=== PATIENT | male | born 1960 | race Caucasian/White ===

== ENCOUNTER 2018-10-28 12:38 | Inpatient (IN) | payer MEDICARE, OTHER ==
[~2018-10-28] VITALS: Ht 172.7 cm; Wt 66.8 kg
--- NOTE | 2018-10-28 14:18 | Diagnostic Imaging Report ---
History:Slurred speech Comparison studies:None Technique: Axial images were obtained from the skull base to the vertex. Coronal and sagittal images reconstructed from the axial data. Intravenous contrast: None Dose modulation, iterative reconstruction, and/or weight based adjustment of the mA/kV was utilized to reduce the radiation dose to as low as reasonably achievable. Findings: Scalp/skull: No abnormalities. Extra-axial spaces: Left mid cranial fossa arachnoid cyst with mild mass effect over the left temporal pole. No midline shift. Brain sulci: Moderately prominent at the frontal convexities. Ventricles: Age-appropriate. No hydrocephalus. Parenchyma: Hypodensity at the left posterior subinsular region, related to prominent perivascular space. No abnormal densities. No masses, hemorrhage, acute or chronic cortical vascular insults. Sellar/suprasellar region: No abnormalities. Craniocervical junction: Patent foramen magnum. No Chiari one malformation. Incidental findings: Atherosclerotic calcifications in the carotid siphons . Impression: No acute abnormalities. Chronic findings: 1. Moderate cortical volume loss at the frontal lobes, more than expected for patient's age. 2. Left mid cranial fossa arachnoid cyst Signed by: DR Rufino Paul M.D. on 10/28/2018 2:15 PM
[2018-10-28 14:27] LABS: BASOPHILS # (AUTO) 0.1 (0.0-0.1); BASOPHILS % 0.7 % (0.0-1.0); EOSINOPHILS # (AUTO) 0.2 (0.0-0.4); EOSINOPHILS % 2.6 % (0.0-6.0); HEMATOCRIT 42.8 % (38.2-49.6); HEMOGLOBIN 14.8 g/dL (14.0-18.0); LYMPHOCYTES # (AUTO) 2.4 (1.0-3.2); MEAN CORPUSCULAR HEMOGLOBIN 30.5 pg (28-32); MEAN CORPUSCULAR HGB CONC 34.6 g/dL (31-35); MEAN CORPUSCULAR VOLUME 88.2 fL (81-99); MONOCYTES # (AUTO) 0.6 (0.2-0.8); MONOCYTES % 7.6 % (4.4-11.3); NEUTROPHILS # (AUTO) 4.1 (2.1-6.9); NEUTROPHILS % 55.8 % (38.7-80.0); PLATELET COUNT 340 x10e3/uL (140-360); RED BLOOD COUNT 4.85 x10e6/uL (4.3-5.7); RED CELL DISTRIBUTION WIDTH 12.6 % (11.7-14.4)
[2018-10-28 14:32] LABS: INR 0.94; PROTHROMBIN TIME 13.1 seconds (11.9-14.5)
[2018-10-28 14:42] LABS: ALANINE AMINOTRANSFERASE 22 IU/L (0-55); ALBUMIN/GLOBULIN RATIO 0.8 (0.8-2.0); ALKALINE PHOSPHATASE 63 IU/L (40-150); ANION GAP 13.2 mmol/L (8-16); BLOOD UREA NITROGEN 8 mg/dL (7-26); BUN/CREATININE RATIO 8 (6-25); CALCIUM 9.2 mg/dL (8.4-10.2); CARBON DIOXIDE 28 mmol/L (22-29); CHLORIDE 106 mmol/L (98-107); CREATINE KINASE 83 IU/L (30-200); CREATININE, SERUM 1.04 mg/dL (0.72-1.25); EST GLOMERULAR FILTRATION RATE > 60 ML/MIN (60-); GLUCOSE 90 mg/dL (74-118); MAGNESIUM 2.4 MG/DL (1.3-2.1); POTASSIUM 4.2 mmol/L (3.5-5.1); SODIUM 143 mmol/L (136-145)
[2018-10-28] MEDS ORDERED: ONDANSETRON HCL INJ 2MG/ML 2ML 2 MG/ML VIAL IV PRN (15:00)
[2018-10-28 15:02] LABS: THYROID STIMULATING HORMONE 0.665 uIU/mL (0.350-4.940)
[2018-10-28 15:11] LABS: AMPHETAMINES SCREEN,URINE NEGATIVE (NEGATIVE); BENZODIAZEPINES SCREEN,URINE NEGATIVE (NEGATIVE); BILIRUBIN,URINE NEGATIVE (NEGATIVE); CLARITY,URINE CLEAR (CLEAR); COLOR,URINE YELLOW (YELLOW); KETONES,URINE NEGATIVE (NEGATIVE); LEUKOCYTE ESTERASE ,URINE NEGATIVE (NEGATIVE); NITRITE,URINE NEGATIVE (NEGATIVE); PHENCYCLIDINE SCREEN,URINE NEGATIVE (NEGATIVE); PROTEIN,URINE DIPSTICK NEGATIVE (NEGATIVE); URINE UROBILINOGEN 0.2 mg/dL (0.2 - 1)
--- OUTSIDE RECORDS SUMMARY | 2018-10-28 15:19 | XMS REPORT ---
Author Author [facility] Address Unknown Phone Unavailable Care Team Providers Care Corporate Director Of Human Resources Name Role Phone Lou CRUZ Unavailable Unavailable Problems This patient has no known problems. Allergies, Adverse Reactions, Alerts This patient has no known allergies or adverse reactions. Medications This patient has no known medications. Results Test Description Test Time Test Comments Text Results Atomic Results Result Comments CT BRAIN WO 2018-10-28 14:10:00 [facility] [address] [address] Patient Name: RAHEL BLANCHARD MR #: [id number] : 1960 Age/Sex: 58/M Req #: [id number] Adm Physician: Ordered by: GREY CRUZ MD Report #: [id number] Location: ER Room/Bed: Procedure: [id number] CT/CT BRAIN WO Exam Date: 10/28/18 Exam Time: 1330 REPORT STATUS: Signed History:Slurred speech Comparison studies:None Techniqu e: Axial images were obtained from the skull base to the vertex. Coronal and sagittal images reconstructed from the axial data. Intravenous contrast: None Dose modulation, iterative reconstruction, and/or weight based adjustment of the mA/kV was utilized to reduce the radiation dose to as low as reasonably achievable. Findings: Scalp/skull: No abnormalities. Extra-axial spaces: Left mid cranial fossa arachnoid cyst with mild mass effect over the left temporal pole. No midline shift. Brain sulci: Moderately prominent at the frontal convexities. Ventricles: Age-appropriate. No hydrocephalus. Parenchyma: Hypodensity at the left posterior subinsular region, related to prominent perivascular space. No abnormal densities. No masses, hemorrhage, acute or chronic cortical vascular insults. Sellar/suprasellar region: No abnormalities. Craniocervical junction: Patent foramen magnum. No Chiari one malformation. Incidental findings: Atherosclerotic calcifications in the carotid siphons . Impression: No acute abnormalities. Chronic findings: 1. Moderate cortical volume loss at the frontal lobes, more than expected for patient's age. 2. Left mid cranial fossa arachnoid cyst Signed by: DR Rufino Paul M.D. on 10/28/2018 2:15 PM Dictated By: RUFINO ARNDT MD [id number] Transcribed By: SOLOMON on 10/28/18 1415 COPY TO: GREY CRUZ MD
[2018-10-28 15:20] LABS: BACTERIA,URINE FEW /HPF; EPITHELIAL CELLS,URINE RARE /LPF
[2018-10-28] MEDS: SODIUM CHLORIDE 0.9% 1000ML 1,000 ML IV SCH (15:32)
--- NOTE | 2018-10-28 15:53 | Diagnostic Imaging Report ---
EXAM: CHEST SINGLE (PORTABLE), AP Portable DATE: 10/28/2018 Time stamp on exam: 1:48 PM INDICATION: Slurred speech COMPARISON: None FINDINGS: LINES/TUBES: None LUNGS: Ill-defined right upper lobe airspace opacities may represent evolving infiltrate. PLEURA: No effusions or pneumothorax. HEART AND MEDIASTINUM: Normal size and contour. BONES AND SOFT TISSUES: No acute findings. Orthopedic plate overlies the lower cervical spine. IMPRESSION: Ill-defined right upper lobe airspace opacities may represent pneumonia. Signed by: Dr. Benito Dockery DO on 10/28/2018 3:49 PM
[2018-10-28] MEDS ORDERED: GADOBENATE DIMEGLUMINE 1 ML IV ONE (16:25)
[2018-10-28 18:20] VITALS: BP 136/78
--- NOTE | 2018-10-28 18:26 | NUR ---
Patient arrived to the unit at this time via stretcher from the ED. Patient has complaints of headache. He is asking if he can have ice chips. I educated patient that since he is having trouble swallowing, he is not allowed to have anything by mouth. Patient verbalizes understanding. Oriented patient to the room. Bed is low and locked. Told patient to call for assistance. Call gil within reach. Let patient know that Dr. Rincon would be here to see him after the reports of the MRI's are released. Family at the bedside.
--- NOTE | 2018-10-28 18:31 | Diagnostic Imaging Report ---
ADDENDUM #1 I agree with the primary findings of this report. Additionally, there is no evidence of acute ischemia. Signed by: Dr. Thai Lovell M.D. on 10/29/2018 4:07 AM ORIGINAL REPORT History: Multiple sclerosis, slurred speech Comparison studies: Head CT 10/28/2018 Technique: Axial DWI, axial and sagittal T2/FLAIR, axial T2 FS, axial T1/flair, axial and coronal T1 post Intravenous contrast: 17 cc of MultiHance Findings: Scalp: No abnormal signal. No masses. Bone marrow: Normal in signal intensity. Extra-axial: Incidental left middle cranial fossa arachnoid cyst with mild mass effect on the anterior temporal lobe. Nonspecific prominence of the bifrontal subarachnoid spaces. Brain sulci: Appropriate for age. Ventricles: Normal in size . No hydrocephalus. Parenchyma: Multiple (at least 20-30) discrete T2/FLAIR hyperintense foci in the supratentorial white matter. These include the right frontal centrum semiovale, bilateral crawley radiata, periventricular white matter, callososeptal margin, and midbrain. Lesions measure in size from punctate to 2 cm in long axis diameter. No enhancing lesions are identified. No lesions on T1-weighted images which match CSF intensity. Incidental prominent perivascular space just inferior to the left basal ganglia. Corpus callosum is normal in volume. Suprasellar region: No abnormalities. Craniocervical junction: No abnormalities. Patent foramen magnum. No Chiari one malformation.. Vessels: Normal flow-voids in the arteries and sinuses. Incidental findings: Nonspecific partial opacification of the left mastoid tip. IMPRESSION: 1. Approximate 20-30 T2/FLAIR hyperintense foci with morphology characteristic of multiple sclerosis. 2. No enhancing lesions, no T1 hypointense foci similar to CSF, nor significant volume loss. A preliminary report was provided by Dr. Sharma on 10/28/2018 6:28 PM. Signed by: Raciel Sharma MD on 10/28/2018 6:28 PM
--- NOTE | 2018-10-28 19:40 | NUR ---
Report taken from morning rn.walking round done.has c/o headache. is in the unit.notified.received new orders.family members at bed side.bed locked and in lowest position.phone and call light within reach.instructed to call for assistance as needed. verbalised understanding.
[2018-10-28] MEDS: ACETAMINOPHEN 1000 MG/100 ML IV PRN (20:42)
[2018-10-28 21:00] VITALS: BP 136/78
--- NOTE | 2018-10-28 22:20 | NUR ---
Blood duke and sent to the lab for cardiac markers.pt tolerated well.
[2018-10-28 22:56] LABS: CREATINE KINASE 78 IU/L (30-200)
[2018-10-29] VITALS: BP 123/71
--- NOTE | 2018-10-29 00:10 | NUR ---
PT IS COMFORTABLY RESTING IN THE BED.FAMILY MEMBER AT BED SIDE.ON NPO.
[2018-10-29] MEDS: SODIUM CHLORIDE 0.9% 1000ML 1,000 ML IV SCH ×3 (01:33→22:00)
--- NOTE | 2018-10-29 02:16 | Consultation ---
DATE OF CONSULTATION: 10/28/2018 Neurology Consult Note HISTORY OF PRESENT ILLNESS: Mr. Sebastian is a 58-year-old left-hand dominant man with past medical history significant for relapsing-remitting multiple sclerosis, not on treatment, admitted to [facility] on October 28, 2018 with a possible MS exacerbation. On the evening prior to admission, the patient experienced a burning sensation throughout his mouth and over his tongue. Mr. Sebastian attributed this to "dipping too much tobacco yesterday." Upon awakening at approximately 0830 hours on the day of admission, the patient noted mild dysarthria. The dysarthria progressively worsened throughout the morning. During lunch, the patient noted difficulty swallowing. At this time, Mr. Sebastian informed his family members of his symptoms. He was quickly brought to the emergency center at [facility] for further evaluation of his symptoms. Mr. Sebastian does not report a visual field cut or other disturbance, aphasia, facial droop, hemiparesis, numbness, tingling, poor balance, gait impairment, dizziness, or confusion associated with the above symptoms. Upon arrival in the emergency center, the patient was afebrile with a blood pressure of 118/74 mmHg and a pulse of 75 beats per minute. The patient's neurological examination was documented as being significant for moderate dysarthria. Otherwise, no deficits were noted. While in the emergency center, Mr. Sebastian underwent a CT of the brain without contrast. This study did not reveal evidence of recent large territorial ischemia or hemorrhage. Mr. Sebastian was admitted to [facility] as an inpatient for further evaluation and treatment of his symptoms. Mr. Sebastian reports being diagnosed with multiple sclerosis approximately 38 years ago. The patient reportedly was told his multiple sclerosis is "benign" and treatment with disease modifying therapy is unnecessary. In the past 38 years, Mr. Sebastian reports experiencing 4 to 5 MS exacerbations. In each instance, the patient was treated with high-dose intravenous steroids as well as speech, physical, or occupational therapies if needed. Mr. Sebastian reports the symptoms from these prior exacerbations gradually resolved over a period of 2 to 3 months. Mr. Sebastian reports no deficits from his prior MS exacerbations. However, Mr. Sebastian's family members do not agree with this assertion. His daughter reports chronic hearing loss in the left ear as a result of a prior MS exacerbation. Furthermore, the patient's daughter reports Mr. Sebastian drags his right leg. She reports the weakness in his right leg is a deficit from a prior MS exacerbation. Mr. Sebastian's last multiple sclerosis exacerbation was in 2013. He was seen by Dr. Skylar Florence and treated with high-dose intravenous steroids. REVIEW OF SYSTEMS: Shortness of breath, headache, a swollen sensation in the tongue, dysarthria, dysphagia, otherwise a 12-point review of systems is negative. PAST MEDICAL HISTORY: Hyperlipidemia, relapsing-remitting multiple sclerosis, chronic neck and back pain from degenerative disk disease, benign prostatic hypertrophy. PAST SURGICAL HISTORY: Cervical spine fusions, lumbar spine fusions, wiring of the jaw following fracture, left inguinal hernia repair x2, hemorrhoidectomy x2, tonsillectomy, adenoidectomy, vasectomy. PAST HOSPITALIZATIONS: Surgeries/procedures as listed, multiple sclerosis, fall from a horse. FAMILY MEDICAL HISTORY: The patient's paternal and maternal grandparents are . Their medical histories are unknown. Mr. Sebastian's father is from lung cancer. His mother is alive and has lymphoma. The patient has two sisters who are alive and healthy. He has 2 children, one son and one daughter, both of whom are alive and healthy. SOCIAL HISTORY: Mr. Sebastian is . He is not employed. The patient does report a prior history of tobacco use, but Mr. Sebastian quit smoking cigarettes approximately 3.5 years ago. He still dips tobacco daily. The patient endorses occasional alcohol use. He does not report current or prior recreational drug use. HOME MEDICATIONS: Gabapentin, ibuprofen, Flexeril p.r.n., tramadol p.r.n., Avodart, rosuvastatin. ALLERGIES: NO KNOWN DRUG ALLERGIES. NO KNOWN FOOD ALLERGIES. NO KNOWN ALLERGIES TO LATEX. NO KNOWN ALLERGIES TO IODINE OR OTHER CONTRAST MATERIALS. PHYSICAL EXAMINATION: VITAL SIGNS: Height 68 inches, weight 190 pounds, BMI 28.9 kg/m2, blood pressure 132/69 mmHg, pulse 64 beats per minute, respiratory rate 16 breaths per minute, oxygen saturation 100% on room air. GENERAL: The patient is awake and alert, does not appear distressed. Overweight. HEENT: Normocephalic, atraumatic. Pupils are equal, round, and reactive to light. Moist mucous membranes. NECK: Supple. No appreciable thyromegaly. No appreciable carotid bruits. CARDIOVASCULAR: S1, S2, regular rate and rhythm. No murmurs, rubs, or gallops. RESPIRATORY: Clear to auscultation bilaterally. No wheezes, rhonchi, or rales. EXTREMITIES: The skin is warm and dry. No clubbing, cyanosis, or edema. The posterior tibial and dorsalis pedis pulses are 2+ and symmetric. SKIN: No rashes or lesions. NEUROLOGIC: Memory/Attention: The patient is awake and alert, oriented to person, place, time, and situation. Cranial Nerves: Cranial nerve I -- not tested. Cranial nerve II, III, IV, and -- the pupils are equal and round, react briskly to light (from 4 mm to 2 mm). Extraocular movements intact. No nystagmus. Cranial nerve V -- sensation to light touch and pinprick is intact in the bilateral V1 through V3 distributions. Strength of the temporalis and masseter muscles is within normal limits. Cranial nerve VII -- the face is symmetric, as are all facial movements. Strength is within normal limits. Cranial nerve VIII -- hearing is intact to finger rub bilaterally. Cranial nerves IX, X -- the soft palate elevates equally and symmetrically. Cranial nerve XI -- normal strength of the bilateral sternocleidomastoid and trapezius muscles. Cranial nerve XII -- the tongue deviates to the right, but moves symmetrically from [id number]. Strength: Bulk is normal. Strength is 5/5 in the bilateral deltoids, biceps, triceps, wrist flexors and extensors, finger flexors and extensors, intrinsic hand muscles, hip flexors, knee flexors and extensors, ankle dorsiflexion and plantar flexion, and intrinsic foot muscles. Tone is normal. DTRs: Deep tendon reflexes are 2+ and symmetric at the triceps, biceps, brachioradialis, patellas, and Achilles. Plantar responses are flexor bilaterally. Sensation: Sensation is intact to light touch and pinprick in both arms and both legs. Cerebellar: Htiqvb-[id number]-[id number] and heel-jimenez movements are intact without dysmetria or other impairment. Gait: Deferred. Speech: Spontaneous speech is moderately dysarthric without aphasia. Repetition is intact. Involuntary movements: None. Pronator Drift: None. LABORATORY DATA: A comprehensive metabolic panel is significant for mildly elevated magnesium of 2.4, albumin of 3.0, and globulin of 3.7. Cardiac enzymes are negative x1. TSH is 0.665. The CBC with differential and platelets is unremarkable. A coagulation profile is within normal limits. A urinalysis is unremarkable. A urine drug screen is negative. DIAGNOSTIC STUDIES: Electrocardiogram of 10/28/2018: Normal sinus rhythm at 73 beats per minute. Chest x-ray of 10/28/2018: Ill-defined right upper lobe airspace opacities may represent pneumonia. CT of the brain without contrast of 10/28/2018: On my review, there is no evidence of recent large territorial ischemia, hemorrhage, mass, or mass effect. Cerebral volumes are diminished for age with compensatory dilatation of the ventricles. An arachnoid cyst with mild mass effect over the left temporal lobe is seen in the left middle cranial fossa. MRI of the brain without contrast of 10/28/2018: On my review, there are approximately 20 to 30 discrete T2/FLAIR hyperintense foci in the supratentorial white matter. These include the right frontal centrum semiovale, the bilateral crawley radiata, periventricular white matter, callososeptal margin, and midbrain. Lesions measure in size from punctate to 2 cm in along the long axis. There is no enhancement of any of these lesions. Cerebral volumes appear mildly diminished for age. Centric ventricles are normal in size. There are no findings suggestive of chronic small-vessel ischemic disease. MRI of the cervical spine without contrast of 10/28/2018: On my review, there is no evidence of active demyelinating lesions. There is multilevel degenerative disk disease without significant spinal canal or neuroforaminal stenosis. ASSESSMENT AND PLAN: Mr. Sebastian is a 58-year-old left-hand dominant man with past medical history significant for relapsing-remitting multiple sclerosis, not on treatment, admitted to [facility] with a probable multiple sclerosis exacerbation. The patient has undergone a thorough neurological examination with findings detailed above. His laboratory data and other diagnostic studies have been reviewed and are documented above. RECOMMENDATIONS: Are as follows: 1. Mr. Sebastian will be treated with methylprednisolone 1000 mg intravenously daily for 3 days. 2. Speech therapy consultation has been ordered. 3. For his headache, Mr. Sebastian will be treated with acetaminophen 500 mg intravenously every 6 hours as needed for mild pain (1 to 3). 4. Gastrointestinal prophylaxis with Pepcid 20 mg by mouth twice daily with meals. Deep venous thrombosis prophylaxis with Lovenox 40 mg subcutaneously daily. 5. Defer treatment of the remaining medical comorbidities to the primary and other services following the patient. Thank you for this consultation. I will continue to follow the patient while he remains in the hospital. TIME SPENT: 70 minutes. Paola Rincon MD CP/SELENA /[id number] MTDJamie
[2018-10-29 04:00] VITALS: BP 137/85
--- NOTE | 2018-10-29 04:27 | Diagnostic Imaging Report ---
Exam: Cervical spine MRI without with IV contrast History: 58-year-old male with multiple sclerosis, dysarthria, slurred speech and trouble swallowing. Comparison studies: None Technique: Precontrast sagittal T1, T2 and inversion recovery, axial T1 and T2 cervical and thoracic. Postcontrast axial and sagittal T1 Intravenous contrast: 17 cc of MultiHance Findings: Several pulse sequences are moderately limited by artifacts related to patient motion. Spinal Cord: Normal in size from the foramen magnum to T1. T2 lesion load: Evaluation of the spinal cord is moderately limited by motion artifacts. At least one discrete lesion in the right lateral cord at C5 as seen on the sagittal T2 and STIR sequences. T1 hypointense foci: None. Enhancement: No gross enhancing lesions. Additional comments: Alignment: Straightened cervical curvature.. Cervicomedullary junction: No abnormalities. The foramen magnum is patent. No Chiari one malformation. Soft tissues tissues: No signal abnormalities. Vertebral bodies: Surgical changes of C5-C7 anterior cervical discectomy and fusion (ACDF) there is solid vertebral body fusion at C5-C6. Degenerative changes: Mildly degenerated disks at C3-C4, C4-C5 and at C7-T1 with small disc osteophyte complexes which indent the thecal sac without significant canal stenosis. Moderate right and mild left foraminal stenosis at C4-C5 due to uncovertebral arthrosis and disc osteophyte complex. IMPRESSION: Exam limited by motion artifacts. In spite of this limitation: 1. At least one discrete cord lesion at C5 compatible with history of multiple sclerosis. No enhancing lesions or cord volume loss. 2. Surgical changes of C5-C7 ACDF. 3. Degenerative changes with mild multilevel disc degeneration and moderate foraminal stenosis on the right at C3-C4. No significant canal stenosis. Signed by: Dr. Thai Lovell M.D. on 10/29/2018 4:23 AM
--- NOTE | 2018-10-29 05:00 | NUR ---
Pt is having anxiety.paged to .waiting for the reply.
[2018-10-29] MEDS ORDERED: LORAZEPAM INJ 2 MG/ML VIAL IV ONE (05:45)
--- NOTE | 2018-10-29 06:00 | NUR ---
Call placed to .received new orders Ativan 0.5 mg iv one time dose given.
--- NOTE | 2018-10-29 06:50 | NUR ---
Report given to the oncoming rn.walking rounds done.stable condition.
[2018-10-29 07:04] LABS: BASOPHILS # (AUTO) 0.1 (0.0-0.1); BASOPHILS % 0.6 % (0.0-1.0); EOSINOPHILS # (AUTO) 0.2 (0.0-0.4); EOSINOPHILS % 1.6 % (0.0-6.0); HEMATOCRIT 47.9 % (38.2-49.6); HEMOGLOBIN 15.9 g/dL (14.0-18.0); LYMPHOCYTES # (AUTO) 2.9 (1.0-3.2); LYMPHOCYTES % 21.5 % (18.0-39.1); MEAN CORPUSCULAR HEMOGLOBIN 29.7 pg (28-32); MEAN CORPUSCULAR HGB CONC 33.2 g/dL (31-35); MEAN CORPUSCULAR VOLUME 89.5 fL (81-99); MONOCYTES # (AUTO) 0.6 (0.2-0.8); MONOCYTES % 4.8 % (4.4-11.3); NEUTROPHILS # (AUTO) 9.5 (2.1-6.9); NEUTROPHILS % 71.2 % (38.7-80.0); PLATELET COUNT 377 x10e3/uL (140-360); RED BLOOD COUNT 5.35 x10e6/uL (4.3-5.7); RED CELL DISTRIBUTION WIDTH 12.6 % (11.7-14.4)
[2018-10-29 07:21] LABS: CREATINE KINASE 75 IU/L (30-200)
[2018-10-29] MEDS: FAMOTIDINE 20 MG TAB PO SCH ×2 (07:30→09:15)
[2018-10-29 07:44] LABS: ALANINE AMINOTRANSFERASE 19 IU/L (0-55); ALBUMIN 3.2 g/dL (3.5-5.0); ALBUMIN/GLOBULIN RATIO 0.8 (0.8-2.0); ALKALINE PHOSPHATASE 67 IU/L (40-150); ANION GAP 12.1 mmol/L (8-16); CALCIUM 9.6 mg/dL (8.4-10.2); CARBON DIOXIDE 25 mmol/L (22-29); CHLORIDE 105 mmol/L (98-107); CHOL/HDL RATIO 3.6 (3.9-4.7); CHOLESTEROL 118 MD/DL (0-199); CREATININE, SERUM 0.92 mg/dL (0.72-1.25); EST GLOMERULAR FILTRATION RATE > 60 ML/MIN (60-); GLUCOSE 89 mg/dL (74-118); HDL CHOLESTEROL 33 MG/DL (40-60); LDL CHOLESTEROL 60 MG/DL (60-130); POTASSIUM 4.1 mmol/L (3.5-5.1); SODIUM 138 mmol/L (136-145); TRIGLYCERIDES 126 MG/DL (0-149)
[2018-10-29 07:54] LABS: BLOOD UREA NITROGEN 9 mg/dL (7-26); BUN/CREATININE RATIO 10 (6-25)
[2018-10-29 08:29] VITALS: BP 132/84
[2018-10-29] MEDS ORDERED: METHYLPREDNISOLONE SOD SUCC 1,000 MG/8 ML VIAL IV SCH (09:00)
[2018-10-29 09:15] VITALS: BP 132/84
[2018-10-29] MEDS: METHYLPREDNISOLONE SOD SUCC 1,000 MG in SODIUM CHLORIDE 0.9% 250ML 250 ML IV SCH (09:15)
--- NOTE | 2018-10-29 10:58 | Diagnostic Imaging Report ---
EXAMINATION: CHEST 2 VIEWS INDICATION: Suspected pneumonia. COMPARISON: Chest radiograph 10/28/2018. FINDINGS: TUBES and LINES: None. LUNGS: Lungs are well inflated. There are focal patchy opacities in the lateral aspect of the right mid lung. No new consolidation. PLEURA: No pleural effusion or pneumothorax. HEART AND MEDIASTINUM: The cardiomediastinal silhouette is unremarkable. BONES AND SOFT TISSUES: No acute osseous abnormality. Partially seen cervical spine fixation hardware. UPPER ABDOMEN: No free air under the diaphragm. IMPRESSION: Focal patchy opacities in the right midlung may represent pneumonia. Recommend follow-up chest radiograph in 6-8 weeks to assess for resolution and exclude underlying lung lesion. Signed by: Dr. Lupe Zhao MD on 10/29/2018 10:55 AM
[2018-10-29] MEDS: ACETAMINOPHEN 1000 MG/100 ML IV PRN ×2 (12:00→19:34)
[2018-10-29 12:49] VITALS: BP 137/85
--- NOTE | 2018-10-29 14:23 | NUR ---
Spoke with Dr. rincon at this time regarding patient changes this shift. Dr. Rincon states, "we are doing all we can for a MS exacerbation. I will see the patient again in my rounds this afternoon." Patient notified that I spoke with Dr. Rincon.
--- NOTE | 2018-10-29 15:00 | NUR ---
Talked with Dr. Singleton at this time to convey patient and patient family concerns. They are asking for breathing treatments and asking for antibiotics for the "pneumonia." Dr. Singleton states, "You are talking to the patient too much." I also informed him that the patient is complaining of numbness to the hands. He stated, "That's a neurological issue." I told him I spoke to Dr. Rincon and she stated it wasn't. He stated he would go into the system and add antibiotics.
[2018-10-29] MEDS: FAMOTIDINE 20 MG/2 ML VIAL IV SCH (16:12)
[2018-10-29] MEDS: ENOXAPARIN SOD INJ 40 MG/0.4 ML SYR SC SCH (16:12)
[2018-10-29 16:36] VITALS: BP 118/82
--- NOTE | 2018-10-29 17:45 | NUR ---
Patient's family calling Selam at this time to file a complaint with her. Stating, "We don't believe that our dad is being taken care." Patient's daughter let me know that Selam was going to call the melt house centrifugal operator, Yisel, to speak with them.
[2018-10-29] MEDS: AMPICILLIN SOD/SULBACTAM 3GM 100 ML IV SCH ×2 (17:51→23:58)
[2018-10-29] MEDS: LORAZEPAM INJ 2 MG/ML VIAL IV PRN (17:51)
--- NOTE | 2018-10-29 19:40 | NUR ---
Tia in to speak with the family at this time.
[2018-10-30] VITALS (16 sets, daily range): BP systolic 87–162; BP diastolic 58–98
[2018-10-30] MEDS: LORAZEPAM INJ 2 MG/ML VIAL IV PRN (00:20)
--- NOTE | 2018-10-30 00:20 | NUR ---
Patient feels difficulty swallowing.assessment done.no resp.distress.Tylenol 500 mg iv given.iv is leaking.removed and applied pressure dressing.iv cannula is intact.new iv started to left fore arm.patent.pt tolerated well.bed locked and in lowest position.phone and call light within reach.instructed to call for assistance as needed.family member at bed side.keep monitor the pt.
[2018-10-30] MEDS: AMPICILLIN SOD/SULBACTAM 3GM 100 ML IV SCH ×3 (05:30→18:50)
[2018-10-30 06:32] LABS: BASOPHILS % 0.1 % (0.0-1.0); HEMATOCRIT 43.1 % (38.2-49.6); HEMOGLOBIN 14.6 g/dL (14.0-18.0); LYMPHOCYTES # (AUTO) 1.3 (1.0-3.2); LYMPHOCYTES % 7.6 % (18.0-39.1); MEAN CORPUSCULAR HEMOGLOBIN 29.7 pg (28-32); MEAN CORPUSCULAR HGB CONC 33.9 g/dL (31-35); MEAN CORPUSCULAR VOLUME 87.6 fL (81-99); MONOCYTES # (AUTO) 0.2 (0.2-0.8); MONOCYTES % 0.9 % (4.4-11.3); NEUTROPHILS # (AUTO) 15.7 (2.1-6.9); PLATELET COUNT 354 x10e3/uL (140-360); RED BLOOD COUNT 4.92 x10e6/uL (4.3-5.7); RED CELL DISTRIBUTION WIDTH 12.5 % (11.7-14.4)
--- NOTE | 2018-10-30 06:51 | NUR ---
Report given to the oncoming rn.walking rounds done.stable condition.
[2018-10-30 06:57] LABS: ANION GAP 13.7 mmol/L (8-16); BLOOD UREA NITROGEN 15 mg/dL (7-26); BUN/CREATININE RATIO 19 (6-25); CALCIUM 9.3 mg/dL (8.4-10.2); CARBON DIOXIDE 23 mmol/L (22-29); CHLORIDE 105 mmol/L (98-107); EST GLOMERULAR FILTRATION RATE > 60 ML/MIN (60-); GLUCOSE 130 mg/dL (74-118); POTASSIUM 3.7 mmol/L (3.5-5.1); SODIUM 138 mmol/L (136-145)
[2018-10-30] MEDS: SODIUM CHLORIDE 0.9% 1000ML 1,000 ML IV SCH ×2 (07:00→18:51)
[2018-10-30] MEDS: FAMOTIDINE 20 MG/2 ML VIAL IV SCH ×2 (08:49→18:52)
[2018-10-30] MEDS: METHYLPREDNISOLONE SOD SUCC 1,000 MG in SODIUM CHLORIDE 0.9% 250ML 250 ML IV SCH (08:49)
--- NOTE | 2018-10-30 08:49 | NUR ---
Informed patient that new attending physician will be Dr. Moeller and he will see the patient this afternoon.
[2018-10-30] MEDS: ALBUTEROL/IPRATROPIUM 3 ML NEB NEB SCH ×4 (11:00→23:30)
[2018-10-30 11:13] LABS: ABG HCO3 24 mmol/L (23-28); ABG PCO2 36 mmHg (41-51); ABG PH 7.43 (7.31-7.41); ABG PO2 124 mmHg (80-105)
[2018-10-30] MEDS ORDERED: ALBUTEROL/IPRATROPIUM 3 ML NEB ONE (11:26)
--- NOTE | 2018-10-30 11:45 | NUR ---
Patient to room 192; in acute respiratory distress with O2 sats 73%, cyanosis around nose and mouth. Dr Coronado to bedside; patient intubated and placed on mechanical ventilator. Dr Tate ordered propofol gtt for sedation and sputum culture, sputum obtained and sent to lab by RT.
--- NOTE | 2018-10-30 11:45 | NUR ---
Patient restrained at [address] Moeller telephone order.
[2018-10-30] MEDS ORDERED: PROPOFOL IV EMULSION 10 MG/ML 50 ML VIAL IV PRN (12:15)
--- NOTE | 2018-10-30 12:29 | Diagnostic Imaging Report ---
Examination: Single AP view of the chest. COMPARISON: 10/29/2018 INDICATION: Possible aspiration DISCUSSION: Interval intubation. The tip of the endotracheal tube projects approximately 3 cm above the yi. Lung volumes are low with vascular crowding in the bases and perihilar regions. Patchy opacities in the right midlung are again noted, though are less conspicuous as seen on 10/29/2018. Stable cardiomediastinal contour when accounting for portable, AP technique and low lung volumes. No acute osseous abnormality. IMPRESSION: Interval intubation, with the tip of the endotracheal tube approximately 3 cm above the yi. Low lung volumes with vascular crowding or atelectasis in the lung bases and perihilar regions. Patchy opacities in the right midlung are again noted. Refer to the radiograph 10/29/2018 for details and recommendations. Signed by: Dr. Thai Schreiber M.D. on 10/30/2018 12:26 PM
--- NOTE | 2018-10-30 13:04 | NUR ---
faxed order to admissions to change attending
[2018-10-30 13:14] LABS: ABG HCO3 24 mmol/L (23-28); ABG PCO2 36 mmHg (41-51); ABG PH 7.43 (7.31-7.41); ABG PO2 124 mmHg (80-105)
--- NOTE | 2018-10-30 13:17 | NUR ---
WAS CALLED TO ROOM TO GIVE INFORMATION ON ADVANCED DIRECTIVE, PT WAS BEING MOVED TO ICU AND WS LETHARGIC THEREFORE UNABLE TO SIGN CONSENT FOR ANYTHING, SPOKE WITH ABOUT LEGAL NEXT OF KIN THAT SHE IS HIS AND THEREFORE PRIMARY DECISION MAKER, SHE STATES IF SHE IS UNAVAILABLE THEN HIS DAUGHTER WILL BE NEXT TO MAKE DECISIONS, ADVISED TO FILL OUT AN ADVANCED DIRECTIVE ON HERSELF WELL TO ENSURE IF ANYTHING WERE TO HAPPEN THEY ALREADY HAVE IT. SHE STATES HER FRIEND IS A NOTARY SO WHEN HE IS ABLE THEY WILL HAVE IT COMPLETED. GAVE ADVANCED DIRECTIVES AND CARD FOR ANY FURTHER QUESTIONS.
[2018-10-30] MEDS: PROPOFOL IV EMULSION 10MG/ML 100 ML IV SCH ×3 (14:12→19:59)
--- NOTE | 2018-10-30 14:35 | NUR ---
ST Note: EMR reviewed. Change in status noted. Spoke with YULIANA Coffman, re: concerns for nutritional support since pt's last meal was almost 4 days ago. Temporary alternative means of nutrition recommended.
[2018-10-30] MEDS: VANCOMYCIN 1GM/NS 250 ML 250 ML IV SCH ×2 (15:50→22:27)
[2018-10-30 16:09] LABS: CREATINE KINASE MB 1.2 ng/mL (0-5.0)
[2018-10-30] MEDS ORDERED: SUCCINYLCHOLINE CHLORIDE 20 MG/ML 10ML VIAL ONE (17:54)
[2018-10-30] MEDS ORDERED: ETOMIDATE 2 MG/ML 10 ML INJ IV ONE (17:54)
--- NOTE | 2018-10-30 18:03 | Diagnostic Imaging Report ---
EXAM: ABDOMEN-1VIEW (KUB), DATE: 10/30/2018 4:25 PM INDICATION: Gastric tube placement verification. COMPARISON: None FINDINGS: LINES/TUBES: NG tube with distal tip projected on Location of the gastric body. BOWEL PATTERN: No evidence for obstruction. SOFT TISSUES: Severe degenerative changes L4-L5 and L5-S1 with postoperative changes. LUNG BASES: Not included BONES: No acute findings. IMPRESSION: NG tube with distal tip projected on the expected location of the gastric body in adequate position. Signed by: Dr. Neftali Galicia M.D. on 10/30/2018 5:59 PM
--- NOTE | 2018-10-30 18:20 | Progress Note ---
DATE: 10/30/2018 Internal Medicine Progress Note SUBJECTIVE: The patient is a 58-year-old male, who was recently admitted with multiple sclerosis exacerbation with slurred speech, suddenly he had a deterioration in his medical condition. He was choking and having worsening of his symptoms. He went into respiratory failure with acute hypoxemia, had to be transferred to the ICU intubated. He was found to have evidence of bilateral infiltrates, most likely secondary to aspiration pneumonia. PHYSICAL EXAMINATION: HEART: Showed regular rhythm. Normal S1, S2 sound. LUNGS: Clear bilaterally. ABDOMEN: Soft. EXTREMITIES: Show no evidence of cyanosis or hematoma. FINAL IMPRESSION: 1. Acute hypoxic respiratory failure, most likely secondary to aspiration pneumonia. 2. Aspiration pneumonia. 3. Multiple sclerosis exacerbation. PLAN OF TREATMENT: Continue ventilator support. Continue vancomycin. Continue Unasyn. Continue Solu-Medrol. The patient has been seen also by Dr. Tate for Pulmonary and Dr. Rincon for Neurology. The case has been discussed with the daughter at the bedside, the already left. I discussed the case with the nurse. Time spent around an hour. MD ALICE Yin/CHANDANAL /[id number]
[2018-10-30] MEDS: ENOXAPARIN SOD INJ 40 MG/0.4 ML SYR SC SCH (18:52)
--- NOTE | 2018-10-30 19:00 | NUR ---
Bedside report received from Meghna Arzola RN. Pt family at the bedside. Care plan reviewed. No signs of distress noted at this time.
--- NOTE | 2018-10-30 20:30 | NUR ---
Pts daughter Donna asked what the pts afternoon blood lab tests were for and for the results. Upon inspection of the chart I found that the pt had his serum lactic acid and cardiac enzymes tested. I informed her that the results where within facility designated ranges but that she would need to discuss them further with the doctors. Pts daughter Donna stated that she is worried the pt may become develop sepsis (she reports she used to date an IMCU RN and knows that sepsis is can be dangerous) to which I responded that currently the pt is receiving 2 different antibiotics, his vital signs and temperature are being closely monitoring, Q12hr sepsis screens are being completed, and his WBCs along with additional blood labs will be checked again in the morning. The pts daughter Donna responded to this information by saying, "Oh, okay good, thank you."
--- NOTE | 2018-10-30 20:56 | Consultation ---
DATE OF CONSULTATION: 10/30/2018 Pulmonary Medicine consult. REASON FOR REFERRAL: Respiratory failure. HISTORY OF PRESENT ILLNESS: Mr. Sebatsian is a pleasant 58-year-old gentleman with acute respiratory failure. The patient presented to [facility] on October 28, 2018. The patient was having burning throughout the mouth and over his tongue. He thought this was from dipping tobacco excessively. The patient presented to the hospital as he was having increasing dysarthria. He was also having some difficulty swallowing. He is known to have relapsing-remitting multiple sclerosis for many years. He presented to the hospital. Brain MRI demonstrated between 20 and 30 lesions on T2-FLAIR modified images consistent with multiple sclerosis flare. The patient at this point was hospitalized. He was started on some high-dose pulse steroids. The patient, however, continued to worsen. He became sequentially more encephalopathic. The patient with the feeling of drowning in his secretions. Today, oxygen saturation was 73%, he was becoming cyanotic, so decision was made to intubate. I am consulted. PAST MEDICAL AND SURGICAL HISTORY: Hyperlipidemia, relapsing-remitting multiple sclerosis, chronic neck and back pain from degenerative joint disease, BPH, cervical spine fusion more than 10 years ago, lumbar spine fusion, wiring of the jaw following a fracture, left inguinal hernia repair x2, hemorrhoidectomy x2, tonsillectomy, adenoidectomy, vasectomy. MEDICATIONS: Medication list reviewed per the chart record. ALLERGIES: NO KNOWN DRUG ALLERGIES. SOCIAL HISTORY: The patient was smoking up until 4 years ago it seems, but now dips tobacco. No reported heavy alcohol, although he drinks socially. No drugs. He is not working recently. FAMILY HISTORY: Noncontributory to this syndrome. REVIEW OF SYSTEMS: Cannot get as he is intubated. OBJECTIVE: VITAL SIGNS: Afebrile, vital signs noted and reviewed per the chart record. GENERAL: In no acute distress. Alert and calm. HEENT: Normocephalic, atraumatic. NECK: Supple. Throat midline. LUNGS: Bilateral air entry, limited but clear. CARDIOVASCULAR: S1, S2. No murmurs, rubs, or gallops. ABDOMEN: Soft, nontender. EXTREMITIES: No clubbing. No cyanosis. No edema. INTEGUMENT: No rash. No purpura. LABORATORY DATA: Labs reviewed per the chart record. CMP and CBC were for the most part unremarkable. ABG did not show significant hypercapnia. IMAGING DATA: Chest x-ray with lower lung volumes, limited technique but diffuse increased interstitial markings suggests either fluid overload versus diffuse pneumonitis. IMPRESSION AND PLAN: 1. Acute respiratory failure, intubated. 2. Abnormal chest radiography, bilateral pneumonitis, aspiration type, presumed. 3. Bilateral interstitial lung markings, possible fluid overload, which could include negative pressure edema or other unexpected issues. This is less likely. 4. Exacerbation of multiple sclerosis. 5. Dysphagia. 6. Dysarthria. 7. History of relapsing-remitting multiple sclerosis. 8. History of C-spine surgeries, cannot rule out anatomical impedance/obstruction to the upper airway digestive tract line. Continue ventilator at this time. Maintain intubated state. Continue toileting his airways. As he stabilizes and is able to tolerate the ventilator, we will choose to try to exercise him given his neuromuscular issues. For now, sedation and possible pain medicine to stabilize him. Repeat chest x-ray tomorrow. Toilet airways and give antibiotics for aspiration. If he does not improve readily, there was consideration of fluid excess, although the sputum suggests it would not be entirely fluid as there is an inflammatory character to the secretions that he has. Thereafter, he may need speech therapy evaluation given his history of both neuromuscular and C-spine surgeries that could affect his swallow and speech. The patient is in critical condition. Follow along closely. Check ultrasound of the lower extremities to rule out DVT. Greater than 30 minutes in direct care today, multiple evaluations, coordination. Thank you for this consult, Dr. Moeller. MD CLAUDIA Lay/MODL /[id number]
[2018-10-30 21:23] LABS: CREATINE KINASE MB 1.4 ng/mL (0-5.0)
--- NOTE | 2018-10-30 23:00 | NUR ---
Reassessment completed. Please refer to tailing machine operator documentation as needed for further details.
[2018-10-31] VITALS (24 sets, daily range): BP systolic 109–169; BP diastolic 58–104
[2018-10-31] MEDS: AMPICILLIN SOD/SULBACTAM 3GM 100 ML IV SCH ×4 (00:21→17:12)
[2018-10-31] MEDS: PROPOFOL IV EMULSION 10MG/ML 100 ML IV SCH ×3 (01:05→21:00)
[2018-10-31] MEDS: ALBUTEROL/IPRATROPIUM 3 ML NEB NEB SCH ×6 (03:30→23:30)
[2018-10-31 04:54] LABS: BASOPHILS % 0.1 % (0.0-1.0); EOSINOPHILS % 0.1 % (0.0-6.0); HEMATOCRIT 41.1 % (38.2-49.6); HEMOGLOBIN 13.4 g/dL (14.0-18.0); LYMPHOCYTES # (AUTO) 1.3 (1.0-3.2); LYMPHOCYTES % 7.6 % (18.0-39.1); MEAN CORPUSCULAR HEMOGLOBIN 29.7 pg (28-32); MEAN CORPUSCULAR HGB CONC 32.6 g/dL (31-35); MONOCYTES # (AUTO) 0.4 (0.2-0.8); MONOCYTES % 2.3 % (4.4-11.3); NEUTROPHILS # (AUTO) 14.6 (2.1-6.9); NEUTROPHILS % 89.3 % (38.7-80.0); PLATELET COUNT 302 x10e3/uL (140-360); RED BLOOD COUNT 4.51 x10e6/uL (4.3-5.7); RED CELL DISTRIBUTION WIDTH 13.1 % (11.7-14.4)
[2018-10-31 04:59] LABS: MEAN CORPUSCULAR VOLUME 91.1 fL (81-99)
[2018-10-31 05:20] LABS: CREATINE KINASE MB 10.7 ng/mL (0-5.0)
[2018-10-31 05:41] LABS: ALANINE AMINOTRANSFERASE 22 IU/L (0-55); ALKALINE PHOSPHATASE 58 IU/L (40-150); ANION GAP 11.7 mmol/L (8-16); BLOOD UREA NITROGEN 15 mg/dL (7-26); BUN/CREATININE RATIO 19 (6-25); CALCIUM 9.1 mg/dL (8.4-10.2); CARBON DIOXIDE 26 mmol/L (22-29); CHLORIDE 107 mmol/L (98-107); CREATININE, SERUM 0.81 mg/dL (0.72-1.25); EST GLOMERULAR FILTRATION RATE > 60 ML/MIN (60-); GLUCOSE 152 mg/dL (74-118); MAGNESIUM 2.4 MG/DL (1.3-2.1); PHOSPHORUS 3.1 MG/DL (2.3-4.7); POTASSIUM 3.7 mmol/L (3.5-5.1); SODIUM 141 mmol/L (136-145)
--- NOTE | 2018-10-31 07:00 | NUR ---
Bedside report given to Meghna Taylor RN. Pt daughter at the bedside, care plan reviewed and questions addressed regarding plans for the day.
--- NOTE | 2018-10-31 07:07 | Diagnostic Imaging Report ---
EXAMINATION: CHEST SINGLE (PORTABLE) INDICATION: ^pneumonia ^[id number] ^[id number] COMPARISON: 10/30/2018 FINDINGS: AP view TUBES and LINES: Stable endotracheal tube. New nasogastric tube in place with tip extending beyond the inferior margin of the film. LUNGS: Lungs are well inflated. Pulmonary vascular congestion and mild to moderate interstitial edema. PLEURA: No significant pleural effusion or pneumothorax. HEART AND MEDIASTINUM: The cardiomediastinal silhouette is unremarkable. BONES AND SOFT TISSUES: No acute osseous lesion. Partially imaged cervical spine fusion hardware. Soft tissues are unremarkable. UPPER ABDOMEN: No free air under the diaphragm. IMPRESSION: Pulmonary vascular congestion and mild to moderate interstitial edema. Underlying pneumonia cannot be excluded in the appropriate clinical context. Signed by: Dr. Deny Mckenzie MD on 10/31/2018 7:03 AM
--- NOTE | 2018-10-31 08:57 | NUR ---
Dr Moeller to bedside; daughter with multiple questions; plan of care and present condition covered and daughter states understanding.
[2018-10-31] MEDS: FAMOTIDINE 20 MG/2 ML VIAL IV SCH ×2 (09:35→17:12)
[2018-10-31] MEDS: METHYLPREDNISOLONE SOD SUCC 1,000 MG in SODIUM CHLORIDE 0.9% 250ML 250 ML IV SCH (11:10)
--- NOTE | 2018-10-31 11:40 | NUR ---
WOUND CARE PUP SCREEN Narendra Score: 12 PUP: Strict LOS: 2 days Age: 58 Alternating Pressure Air Mattress to Current Weight HOB < 30 Degrees Heel Protectors in Place Patient Position: Right with Wedge Support Bilateral Wrist Restraints in use. Intubated with NGT and Tube Feeds. PATIENT VISIT / SKIN CHECK: No Pressure Ulcers Identified RECOMMENDATION: Strict PUP Addendum: 10/31/18 at 1142 by Deepak Camacho RN Amended: Links added.
--- NOTE | 2018-10-31 12:05 | Progress Note ---
DATE: 10/31/2018 Internal Medicine Progress Note SUBJECTIVE: The patient is still intubated. He is on broad-spectrum IV antibiotic because of the pneumonia. Daughter is at the bedside. PHYSICAL EXAMINATION: HEART: Showed regular rhythm. Normal S1, S2 sound. LUNGS: Clear bilaterally. ABDOMEN: Soft. EXTREMITIES: Show no evidence of cyanosis or hematoma. VITAL SIGNS: Blood pressure 143/81, temperature 98.1, heart rate 103 per minute, respiratory rate 22 per minute, oxygen saturation 100%. LABORATORY STUDIES: On the blood work we have BMP; sodium 138, potassium 3.7, chloride 105, CO2 of 23, BUN 15, creatinine 0.80, glucose . CBC; white blood count 74107, hemoglobin 14.6, hematocrit 43.1, platelet count 234,000. INR was 0.4, PTT 30.0. AST 22, ALT 19, total bilirubin 0.8, alkaline phosphatase 67. FINAL IMPRESSION: 1. Aspiration pneumonia leading to respiratory failure. 2. Acute respiratory failure secondary to aspiration pneumonia. 3. Exacerbation of multiple sclerosis. PLAN OF TREATMENT: We are going to continue ventilator support. Continue Solu-Medrol 125 mg daily. Continue Unasyn q.6 hours. Continue vancomycin twice a day. Continue propofol for sedation. Continue lorazepam 1 mg q.6 hours as needed, Zofran 4 mg IV q.4 hours as needed, fentanyl citrate also as needed, Lovenox 40 mg subcutaneously daily, Pepcid 20 mg twice a day for prophylaxis of gastritis. The patient as I said will continue with the ventilator support. We are going to continue NG tube feedings. Continue the antibiotic regimen. Dr. Rincon is on the case for Neurology, managing the steroids. Dr. Tate of the Pulmonary physician also managing the ventilator support. So far, no fever. White blood count is elevated. We are going to continue monitoring the white blood count and lactic acid. All questions have been answered with the family too early to see if the patient come off the ventilator a few days at least for the antibiotics to work and then decide on that. I would recommend to do a CBC and a BMP tomorrow, follow up chest x-rays and I will go on a day-by-day basis. MD ALICE Yin/SELENA /[id number]
[2018-10-31] MEDS: SODIUM CHLORIDE 0.9% 1000ML 1,000 ML IV SCH (14:08)
[2018-10-31] MEDS: VANCOMYCIN 1GM/NS 250 ML 250 ML IV SCH ×2 (14:08→21:59)
[2018-10-31] MEDS: ENOXAPARIN SOD INJ 40 MG/0.4 ML SYR SC SCH (17:12)
[2018-10-31] MEDS ORDERED: ROCURONIUM BROMIDE 10 MG/ML 5ML VIAL ONE (17:54)
[2018-10-31] MEDS ORDERED: EPHEDRINE SULFATE INJ 50 MG/10 ML SYR ONE (17:54)
--- NOTE | 2018-10-31 19:00 | NUR ---
Bedside report received from Meghna Taylor RN. Pts daughter Donna is at the bedside, care plan reviewed with her participation. No signs of distress noted at this time.
[2018-11-01] VITALS (24 sets, daily range): BP systolic 129–172; BP diastolic 68–85
[2018-11-01] MEDS: AMPICILLIN SOD/SULBACTAM 3GM 100 ML IV SCH ×4 (00:19→18:50)
--- NOTE | 2018-11-01 00:58 | Progress Note ---
DATE: 10/31/2018 Pulmonary Medicine Progress Note. SUBJECTIVE: Mr. Sebastian was seen and examined at the bedside. He continues to have steady progress. The patient with low amount of secretions. Tube feeds at 20 mL/h. He is having high residuals and the feeds were withdrawn back to this rate. Water at 10 mL every 3 hours . He is on NS at 50 mL/h. Sputum so far with gram-positive cocci, moderate and rare gram-negative rods. REVIEW OF SYSTEMS: No headaches, no bleeding known, although limited. The patient does wake up off sedation. OBJECTIVE: VITAL SIGNS: Afebrile, vital signs noted per the chart record. GENERAL: In no acute distress. Alert and calm. HEENT: Normocephalic, atraumatic. NECK: Supple. Throat midline. LUNGS: Bilateral air entry, rare rhonchi. CARDIOVASCULAR: S1, S2. No murmurs, rubs, or gallops. ABDOMEN: Soft, nontender. EXTREMITIES: No clubbing, no cyanosis, no edema. INTEGUMENT: No rash or purpura. LABORATORY DATA: 15 BUN, 0.8 creatinine. 302 platelets, 16 white count. ASSESSMENT/PLAN: 1. Aspiration, gram-negative julio pneumonia. 2. Gram-positive cocci pneumonia. 3. Acute respiratory failure, intubated. 4. Dysphagia, aspiration, MS with exacerbation. Continue ventilator at this time. Repeat chest x-ray tomorrow to see if it improves. Consider weaning as the x-ray starts to improve. Continue water. Try to up titrate his tube-feeds and water as he tolerates. We will have to go slow. I discussed plan of weaning tomorrow and since he wakes up vigorously, no need for spontaneous awakening trial as it is felt to be dangerous per staff. Follow up sputum and increased vancomycin given the low trough of 2. Continue other medicines including ampicillin and Unasyn. Greyson Tate MD GMN/MODL /[id number]
[2018-11-01] MEDS: PROPOFOL IV EMULSION 10MG/ML 100 ML IV SCH ×4 (01:05→16:30)
[2018-11-01] MEDS: ALBUTEROL/IPRATROPIUM 3 ML NEB NEB SCH ×6 (03:30→22:25)
[2018-11-01 05:40] LABS: BASOPHILS % 0.1 % (0.0-1.0); HEMATOCRIT 38.6 % (38.2-49.6); LYMPHOCYTES # (AUTO) 0.7 (1.0-3.2); LYMPHOCYTES % 5.5 % (18.0-39.1); MEAN CORPUSCULAR HGB CONC 33.7 g/dL (31-35); MEAN CORPUSCULAR VOLUME 89.1 fL (81-99); MONOCYTES # (AUTO) 0.4 (0.2-0.8); MONOCYTES % 3.2 % (4.4-11.3); NEUTROPHILS # (AUTO) 11.8 (2.1-6.9); NEUTROPHILS % 90.7 % (38.7-80.0); PLATELET COUNT 282 x10e3/uL (140-360); RED BLOOD COUNT 4.33 x10e6/uL (4.3-5.7); RED CELL DISTRIBUTION WIDTH 13.1 % (11.7-14.4)
[2018-11-01 05:41] LABS: ANION GAP 10.1 mmol/L (8-16); BLOOD UREA NITROGEN 16 mg/dL (7-26); BUN/CREATININE RATIO 25 (6-25); CALCIUM 8.7 mg/dL (8.4-10.2); CARBON DIOXIDE 28 mmol/L (22-29); CHLORIDE 107 mmol/L (98-107); CREATININE, SERUM 0.65 mg/dL (0.72-1.25); EST GLOMERULAR FILTRATION RATE > 60 ML/MIN (60-); GLUCOSE 160 mg/dL (74-118); POTASSIUM 3.1 mmol/L (3.5-5.1); SODIUM 142 mmol/L (136-145)
[2018-11-01] MEDS: VANCOMYCIN 1GM/NS 250 ML 250 ML IV SCH ×3 (06:18→22:05)
[2018-11-01] MEDS: SODIUM CHLORIDE 0.9% 1000ML 1,000 ML IV SCH (06:19)
--- NOTE | 2018-11-01 06:20 | Diagnostic Imaging Report ---
EXAMINATION: CHEST SINGLE (PORTABLE) INDICATION: ^chf ^[id number] ^[id number] COMPARISON: 10/31/2018 FINDINGS: AP view TUBES and LINES: Stable endotracheal and nasogastric tubes. LUNGS: Low lung volumes. Pulmonary vascular congestion and mild interstitial edema. PLEURA: No visible pneumothorax. Suspected trace right pleural effusion. HEART AND MEDIASTINUM: The mediastinal silhouette is enlarged, likely due to rotation and technique.. BONES AND SOFT TISSUES: No acute osseous lesion. Cervical spine fusion hardware is visualized. Soft tissues are unremarkable. UPPER ABDOMEN: No free air under the diaphragm. IMPRESSION: No significant interval change from prior exam. Pulmonary vascular congestion and mild interstitial edema. Suspected trace right pleural effusion. Signed by: Dr. Deny Mckenzie MD on 11/01/2018 6:16 AM
[2018-11-01] MEDS: FAMOTIDINE 20 MG/2 ML VIAL IV SCH ×2 (07:30→18:50)
[2018-11-01] MEDS: METHYLPREDNISOLONE SOD SUCC 1,000 MG in SODIUM CHLORIDE 0.9% 250ML 250 ML IV SCH (09:00)
[2018-11-01] MEDS ORDERED: METHYLPREDNISOLONE SOD SUCC 1,000 MG/8 ML VIAL IV SCH (09:00)
[2018-11-01] MEDS ORDERED: POTASSIUM CHLORIDE 20MEQ/100ML 200 ML IV ONE (12:30)
[2018-11-01] MEDS ORDERED: FUROSEMIDE INJ 10 MG/ML 2 ML VIAL IV ONE (12:30)
[2018-11-01] MEDS ORDERED: SODIUM CHLORIDE 0.9% 250ML 250 ML ONE (13:37)
--- NOTE | 2018-11-01 13:52 | Progress Note ---
DATE: 11/01/2018 Pulmonary Medicine Progress Note SUBJECTIVE: Mr. Sebastian was seen and examined at bedside. He continues to have steady progress. The patient with small secretions. He remains on propofol at this time. Tube feeds still not fully gone due to residual issues. The patient had long conversation with speech therapist today and they had more questions today about expectant procedures. The patient continues to have family at bedside continuously and they are being updated. Potassium was low. REVIEW OF SYSTEMS: Cannot get as he is intubated. OBJECTIVE: VITAL SIGNS: Afebrile, vital signs noted per the chart record. GENERAL: In no acute distress. Alert, calm. HEENT: Normocephalic, atraumatic. NECK: Supple. Throat midline. LUNGS: Bilateral air entry, limited but clear. CARDIOVASCULAR: S1, S2. No murmurs, rubs, or gallops. ABDOMEN: Soft, nontender. EXTREMITIES: No clubbing. No cyanosis. There is no large edema. INTEGUMENT: No rash or purpura. LAB: A 3.1 potassium, 0.7 creatinine. A 13 white count, 38 hematocrit, AND 282 platelets. IMPRESSION: 1. Acute respiratory failure, intubated. 2. Gram-negative pneumonia, aspiration related. 3. Additional gram-positive cocci on sputum, pending. 4. Multiple sclerosis with exacerbation/flare. 5. Dysphagia, bulbar symptoms. Continue comfort medicines for now. Continue intubated state. We will repeat a chest x-ray tomorrow. Give a low-dose Lasix. We will consider extubation tomorrow knowing that it is at least a moderate risk extubation. Start spontaneous awakening trials daily, which he has been on that are linked to breathing trial. Give some potassium extra. Continue antibiotics. Follow up the sputum culture to finalization and consider stopping vancomycin if no resistant gram-positive cocci are noted. The patient will need a vancomycin trough possibly tomorrow. MD CLAUDIA Lay/SELENA /[id number]
--- NOTE | 2018-11-01 14:38 | NUR ---
Nutrition Intervention Note RD Recommendation(s) for Physician: -Pending extubation tomorrow; hold TF for now -If PO is safe after extubation, rec cardiac diet as medically appropriate; texture per PEDIATRIC ASSISTANT -If PO is not safe, rec consult RD for EN rec Plan of Care: RD following, monitoring for tolerance and adequacy Nutrition reason for involvement: New TF RD Assessment 11/01- 58yo M, who was admitted for MS exacerbation. Currently intubated, sedated and ventilated. Pt was discussed during AM rounds. TF was held due to high residual noted. Unknown # mL for gastric residual. No pressor meds noted. Negative urine and blood culture. No pressure wound noted. Visited pt in the room. Propofol running at 27.7mL/hr (730kcal/day if running for 24hr). Per family, pt was eating like normal FISHER DIP NET. No issue with chewing or swallowing FISHER DIP NET. Last meal intake was on 10/28. Pt attempted to lose weight for the last couple months. Speech following. Possible extubation in the AM. Will continue to monitor and follow. Principal Problems/Diagnoses: 1. Acute respiratory failure, intubated. 2. Gram-negative pneumonia, aspiration related. 3. Additional gram-positive cocci on sputum, pending. 4. Multiple sclerosis with exacerbation/flare. 5. Dysphagia, bulbar symptoms. PMH: Hyperlipidemia, relapsing-remitting multiple sclerosis, chronic neck and back pain from degenerative disk disease, benign prostatic hypertrophy. GI: Abdomen round, non-tender, soft, LBM 10/28 Skin: Intact Labs: (11/01) K 3.1 L, Creatinine 0.65 L, Glucose 160 H Meds: abx, propofol, KCl, steroid, pepcid, NaCl Ht: 68in Wt: 205.25lb BMI: 31.2kg/m2 IBW: 154lb Malnutrition Evaluation (11/01/2018) The patient does not meet criteria for a specified degree of malnutrition at this time. Will re-evaluate at follow-up as appropriate. Nutrition Prescription (Diet Order): Jevity 1.2 @20mL/hr Estimated Nutritional Needs: Calories: 1540 1750kcal(22-25kcal/kg/d) Weight used: IBW Protein: 105 175g(1.5-2.5g/kg/d) Weight used: IBW Diet Adequacy: Not meeting calorie needs, Not meeting protein needs TF was held Diet Education Needs Assessment: Diet education indicated, but patient not appropriate for education at this time. Nutrition Care Level: mod Nutrition Diagnosis: Inadequate oral intake related to current medical status as evidenced by pt requiring EN as main source of nutrition. Goal: Patient will meet 75-100% of estimated needs by follow up Progress: N/A Interventions: -Composition, Rate, Route, Recommended Modifications, Collaboration with other providers Monitoring/Evaluation: -Total energy intake, Total protein intake, Formula/Solution, Weight change, Labs Signed: Donna Soares, , RD, LD
[2018-11-01] MEDS ORDERED: POTASSIUM CHLORIDE 20 MEQ TAB CR PO STA (15:56)
--- NOTE | 2018-11-01 18:43 | Progress Note ---
DATE: 11/01/2018 Internal Medicine Progress Note SUBJECTIVE: The patient is still on the ventilator. PHYSICAL EXAMINATION: VITAL SIGNS: Blood pressure 134/76, temperature 98.2, heart rate 60 per minute, respiratory rate 16 per minute, and oxygen saturation 100%. HEART: Showed regular rhythm. Normal S1, S2 sound. LUNGS: Clear bilaterally. ABDOMEN: Soft. EXTREMITIES: Show no evidence of cyanosis or hematoma. IMAGING DATA: Chest x-ray showed bilateral pulmonary infiltrates. LABORATORY DATA: BMP; sodium 142, potassium 3.1, chloride 107, CO2 28, BUN 16, creatinine 0.65, glucose 116. CBC; white blood count 12.9, hemoglobin 13.0, hematocrit 38.6, platelet count 282,000. PT 13.1, INR 0.94, PTT 30.0. AST 42, ALT 22, total bilirubin 0.6, alkaline phosphatase 58. FINAL IMPRESSION: 1. Acute respiratory failure secondary to aspiration pneumonia. 2. Aspiration pneumonia. 3. Multiple sclerosis exacerbation. 4. Hypokalemia. 5. Leukocytosis. PLAN OF TREATMENT: Continue ventilator support. Continue albuterol and Atrovent q.4 hours. Continue Unasyn 1 g IV q.6 hours. Solu-Medrol daily for one time, vancomycin 1 g IV q.8 hours, Zofran 4 mg IV q.4 hours as needed, fentanyl citrate q.4 hours, potassium chloride one time, Lovenox 40 mg subcutaneous daily for DVT prophylaxis, propofol drip, Pepcid 20 mg twice a day, Lorazepam 1 mg q.6 hours as needed, sodium chloride 50 mL an hour. Case has been discussed with the nurse at bedside and family members. MD ALICE Yin/SELENA /[id number]
[2018-11-01] MEDS: ENOXAPARIN SOD INJ 40 MG/0.4 ML SYR SC SCH (18:50)
[2018-11-02] VITALS (25 sets, daily range): BP systolic 111–155; BP diastolic 67–86
[2018-11-02] MEDS: AMPICILLIN SOD/SULBACTAM 3GM 100 ML IV SCH ×3 (00:50→11:59)
[2018-11-02] MEDS: PROPOFOL IV EMULSION 10MG/ML 100 ML IV SCH ×3 (00:57→23:03)
[2018-11-02] MEDS: ALBUTEROL/IPRATROPIUM 3 ML NEB NEB SCH ×6 (03:05→22:30)
[2018-11-02 05:56] LABS: HEMOGLOBIN 12.6 g/dL (14.0-18.0); LYMPHOCYTES # (AUTO) 0.6 (1.0-3.2); LYMPHOCYTES % 5.8 % (18.0-39.1); MEAN CORPUSCULAR HEMOGLOBIN 30.2 pg (28-32); MEAN CORPUSCULAR HGB CONC 34.1 g/dL (31-35); MEAN CORPUSCULAR VOLUME 88.7 fL (81-99); MONOCYTES # (AUTO) 0.4 (0.2-0.8); MONOCYTES % 4.1 % (4.4-11.3); NEUTROPHILS # (AUTO) 8.7 (2.1-6.9); NEUTROPHILS % 89.8 % (38.7-80.0); PLATELET COUNT 269 x10e3/uL (140-360); RED BLOOD COUNT 4.17 x10e6/uL (4.3-5.7); RED CELL DISTRIBUTION WIDTH 13.2 % (11.7-14.4)
[2018-11-02 06:24] LABS: ALANINE AMINOTRANSFERASE 34 IU/L (0-55); ALBUMIN 2.5 g/dL (3.5-5.0); ALBUMIN/GLOBULIN RATIO 0.9 (0.8-2.0); ALKALINE PHOSPHATASE 46 IU/L (40-150); ANION GAP 11.7 mmol/L (8-16); BLOOD UREA NITROGEN 21 mg/dL (7-26); BUN/CREATININE RATIO 32 (6-25); CALCIUM 8.7 mg/dL (8.4-10.2); CARBON DIOXIDE 29 mmol/L (22-29); CHLORIDE 109 mmol/L (98-107); CREATININE, SERUM 0.66 mg/dL (0.72-1.25); EST GLOMERULAR FILTRATION RATE > 60 ML/MIN (60-); GLUCOSE 137 mg/dL (74-118); LACTATE DEHYDROGENASE 296 IU/L (125-220); MAGNESIUM 2.7 MG/DL (1.3-2.1); POTASSIUM 3.7 mmol/L (3.5-5.1); SODIUM 146 mmol/L (136-145)
[2018-11-02] MEDS: VANCOMYCIN 1GM/NS 250 ML 250 ML IV SCH (06:30)
[2018-11-02] MEDS: SODIUM CHLORIDE 0.9% 1000ML 1,000 ML IV SCH (06:30)
--- NOTE | 2018-11-02 07:02 | Diagnostic Imaging Report ---
EXAMINATION: CHEST SINGLE (PORTABLE) INDICATION: ^chf ^[id number] ^0600 COMPARISON: 11/01/2018 FINDINGS: AP view TUBES and LINES: Stable endotracheal and nasogastric tubes. LUNGS: Low lung volumes. Pulmonary vascular congestion on mild interstitial edema. PLEURA: No pneumothorax. Trace bilateral pleural effusions. HEART AND MEDIASTINUM: The cardiomediastinal silhouette is unremarkable. BONES AND SOFT TISSUES: No acute osseous lesion. Soft tissues are unremarkable. UPPER ABDOMEN: No free air under the diaphragm. IMPRESSION: Pulmonary vascular congestion, mild interstitial edema, and trace bilateral pleural effusions. Signed by: Dr. Deny Mckenzie MD on 11/02/2018 6:59 AM
[2018-11-02] MEDS: FAMOTIDINE 20 MG/2 ML VIAL IV SCH ×2 (07:43→16:23)
[2018-11-02] MEDS: METHYLPREDNISOLONE SOD SUCC 1,000 MG in SODIUM CHLORIDE 0.9% 250ML 250 ML IV SCH (08:40)
--- NOTE | 2018-11-02 13:30 | NUR ---
pt extubated per dr lyman. pt stoppeed breathing bagged w/ 100% o2 until dr bhakta reintubated at 1352 ett 8.0 27cm @ lip. dr mai spoke with family regardng poc, pending trach. dr lyman states he spoke with dr collazo regarding consult. no further orders at this time.
[2018-11-02] MEDS ORDERED: MIDAZOLAM HCL 2 MG/2 ML VIAL IV NR (14:17)
[2018-11-02] MEDS: PIPERACILLIN/TAZO 4.5 GM 100 ML IV SCH ×2 (14:52→22:26)
--- NOTE | 2018-11-02 15:08 | Diagnostic Imaging Report ---
EXAMINATION: CHEST SINGLE (PORTABLE) INDICATION: Status post reintubation. COMPARISON: Chest radiograph 11/02/2018 at 628AM. FINDINGS: AP view TUBES and LINES: The endotracheal tube terminates 2.9 cm above the yi. Interval removal of enteric tube. LUNGS: Low lung volumes There is increased perihilar fullness and indistinctness of the pulmonary vasculature. Mild patchy bibasilar opacities. No new consolidation. PLEURA: No pneumothorax. Persistent trace bilateral pleural effusions. HEART AND MEDIASTINUM: The cardiomediastinal silhouette is unremarkable. BONES AND SOFT TISSUES: No acute osseous abnormality. Partially seen cervical spine fixation hardware. UPPER ABDOMEN: No free air under the diaphragm. IMPRESSION: Lines and tubes as above. No evidence of pneumothorax. Increasing pulmonary interstitial edema. Mild patchy bibasilar opacities, likely atelectasis, although superimposed pneumonia is possible in the appropriate clinical setting. Signed by: Dr. Lupe Zhao MD on 11/02/2018 3:04 PM
--- NOTE | 2018-11-02 15:58 | Progress Note ---
DATE: 11/02/2018 Pulmonary Medicine Progress Note SUBJECTIVE: Mr. Sebastian was seen and examined at bedside. The patient with 2.6 L in, 2.3 L out. Sputum culture with surprisingly rare Pseudomonas that was present. Secretions [id number] today. He remains on ventilator. Extensive bedside weaning was personally supervised by me given his condition that was at least a moderate risk for re-intubation. The patient with excellent cuff leak. level came back at -60 at least. Family including daughter and are present at bedside during evaluation. REVIEW OF SYSTEMS: Cannot get as he is intubated. OBJECTIVE: VITAL SIGNS: Noted and reviewed per the chart record. GENERAL: In no distress, on ventilator. LABORATORY DATA: 146 sodium, 3.7 potassium, 21 BUN, 0.7 creatinine. 10 white count, 37 hematocrit, 269 platelets. Albumin is 2.5. BNP is 114. IMPRESSION AND PLAN: 1. Acute respiratory failure. 2. Multiple sclerosis with exacerbation. 3. Gram-negative pneumonia, Pseudomonas. 4. Gram-negative pneumonia, Haemophilus. 5. Aspiration. Continue current care. We will continue treatment. Trial of extubation today, it was shown to be difficult due to the neuromuscular reasons most likely. Little effort. We are going to recommend to reintubate, which we will do shortly after, probably tracheostomy will be best. Greater than 30 minutes in direct care today, multiple evaluations and direct supervision not including procedure time MD CLAUDIA Lay/SELENA /[id number] KARIN
[2018-11-02] MEDS: ENOXAPARIN SOD INJ 40 MG/0.4 ML SYR SC SCH (16:23)
--- NOTE | 2018-11-02 17:28 | Progress Note ---
DATE: 11/02/2018 Internal Medicine Progress Note SUBJECTIVE: The patient is essentially on the ventilator right now. He failed the weaning off the ventilator. He is going to go for a tracheostomy. OBJECTIVE: HEART: Showed regular rhythm. Normal S1, S2 sound. LUNGS: Clear bilaterally. ABDOMEN: Soft. LABORATORY DATA: On the blood work, we have CBC, white blood count 9.68, hemoglobin 12.6, hematocrit 37.0, platelet count 269,000. On the BMP, sodium 146, potassium 3.7, chloride 109, CO2 of 29, BUN 21, creatinine 0.66, glucose 137, calcium 8.7, phosphorus 3.0, magnesium is 2.7. Total bilirubin 0.9, AST 48, ALT 34, alkaline phosphatase 46. Lactate dehydrogenase 296. Beta natriuretic peptide 114. Total protein 5.3, albumin 2.5. IMAGING DATA: Chest x-ray was done today also and it showed pulmonary vascular congestion, mild interstitial edema, trace bilateral pleural effusion. Blood culture negative. Urine culture negative. Sputum culture shows Pseudomonas aeruginosa, Haemophilus species. IMPRESSION: 1. Acute respiratory failure. 2. Multiple sclerosis exacerbation. 3. Aspiration pneumonia. 4. Difficulty swallowing. 5. Leukocytosis, which is resolving. PLAN OF TREATMENT: Continue Zosyn 3.375 g IV every 8 hours. Continue PEG tube feedings. Continue with propofol daily for sedation, normal saline at 70 mL an hour, albuterol and Atrovent q.4 hours around the clock, Lovenox 40 mg subcutaneous daily for DVT prophylaxis, Pepcid 20 mg IV twice a day for gastritis prophylaxis, fentanyl 50 mcg IV q.4 hours as needed for severe pain, Ativan 1 mg IV q.6 hours as needed for anxiety, and Zofran 4 mg IV q.4 hours as needed for vomiting. Case has been discussed with the family. They know that the patient is going to get a tracheostomy because he failed to be off the ventilator. We are going to consult to clarify that and continue current medication regimen. MD ALICE Yin/SELENA /[id number]
[2018-11-02] MEDS ORDERED: SUCCINYLCHOLINE 200 MG/10 ML SYR ONE (19:08)
[2018-11-02] MEDS ORDERED: MIDAZOLAM HCL 2 MG/2 ML VIAL ONE (19:08)
--- NOTE | 2018-11-02 20:03 | Operative Report ---
DATE OF PROCEDURE: 11/02/2018 SURGEON: Greyson Tate MD PROCEDURE: Endotracheal oral intubation. MEDICATIONS: Versed 4 mg. PROCEDURE FINDINGS: After positioning the patient, he was n.p.o. We tried intubating with Versed 4 mg. The epiglottis was falling posterior and was a poor view. With a Mac #4 blade, I attempted intubation below his epiglottis but did not get confirmation based on breath sounds of proper placement so that the ET tube was removed. I readjusted the patients position and readjusted the Mac blade for a second attempt, and I got a grade 2 ASA view by pushing anteriorly more than usual. I was able to intubate the vocal cords with an 8.0 ET tube and it was secured at 26 cm at the lip. COMPLICATIONS: None. ESTIMATED BLOOD LOSS: Negligible. Oral endotracheal intubation, a GRADE 2 ASA view. This procedure time done was not counted towards other critical care time. MD CLAUDIA Lay/CHANDANAL /[id number] MTDD
[2018-11-02] MEDS: DEXTROSE 5% 1,000 ML IV SCH (20:39)
[2018-11-03] VITALS (27 sets, daily range): BP systolic 109–151; BP diastolic 62–81
[2018-11-03] MEDS: PROPOFOL IV EMULSION 10MG/ML 100 ML IV SCH ×5 (02:43→20:00)
[2018-11-03] MEDS: ALBUTEROL/IPRATROPIUM 3 ML NEB NEB SCH ×6 (02:50→23:30)
[2018-11-03] MEDS: PIPERACILLIN/TAZO 4.5 GM 100 ML IV SCH ×3 (06:18→21:24)
[2018-11-03 06:31] LABS: ANION GAP 11.6 mmol/L (8-16); BLOOD UREA NITROGEN 25 mg/dL (7-26); BUN/CREATININE RATIO 38 (6-25); CALCIUM 8.6 mg/dL (8.4-10.2); CARBON DIOXIDE 28 mmol/L (22-29); CHLORIDE 109 mmol/L (98-107); CREATININE, SERUM 0.66 mg/dL (0.72-1.25); EST GLOMERULAR FILTRATION RATE > 60 ML/MIN (60-); GLUCOSE 153 mg/dL (74-118); POTASSIUM 3.6 mmol/L (3.5-5.1); SODIUM 145 mmol/L (136-145)
[2018-11-03] MEDS: FAMOTIDINE 20 MG/2 ML VIAL IV SCH ×2 (08:53→16:10)
--- NOTE | 2018-11-03 10:50 | Diagnostic Imaging Report ---
RADIOGRAPH(S) OF THE ABDOMEN AND PELVIS, 1 view(s) HISTORY: NG tube placement COMPARISON: Abdominal radiograph October 30, 2018 and chest radiograph October 03, 2018 FINDINGS: Overlying artifacts. Interval replacement of the nasogastric/orogastric tube, the tip projects in the region of the distal stomach/proximal duodenum. No specific evidence of obstruction or ileus. No definite urinary tract calcification. The bones are partially obscured by stool and overlying bowel gas. Stable postsurgical changes about the lumbosacral junction. IMPRESSION: 1. Interval placement of an NG/OG-tube. 2. Nonobstructive bowel gas pattern. Signed by: Dr. Batr Barnhart D.O., M.M.M. on 11/03/2018 10:46 AM
[2018-11-03] MEDS: DEXTROSE 5% 1,000 ML IV SCH ×2 (10:56→23:25)
[2018-11-03] MEDS ORDERED: POTASSIUM CHLORIDE 20MEQ/100ML 200 ML IV ONE (12:00)
--- NOTE | 2018-11-03 13:15 | Progress Note ---
DATE: 11/03/2018 Pulmonary Medicine Progress Note SUBJECTIVE: Mr. Sebastian was seen and examined at bedside. He continues to have of internal organs. Propofol 50 mcg/minute. Intermittent fentanyl being given for safety. D5W at 75 mL/hour. A 2.5 L and 1.4 L out. One bowel movement recorded. NG tube displaced successfully. REVIEW OF SYSTEMS: No headaches. No rash perceivable when he awakens. OBJECTIVE: VITAL SIGNS: Afebrile, vital signs noted, stable while on ventilator. HEENT: Normocephalic, atraumatic. NECK: Supple. Throat midline. LUNGS: Bilateral air entry, rare rhonchi. CARDIOVASCULAR: S1, S2. No murmurs, rubs, or gallops. ABDOMEN: Soft, nontender. EXTREMITIES: No clubbing, no cyanosis. There is no edema. INTEGUMENT: No rash or purpura. LABORATORY DATA: A 3.6 potassium, 25 BUN, 0.7 creatinine. A 10 white count, 37 hematocrit. IMPRESSION AND PLAN: 1. Acute respiratory failure, intubated. 2. Upper airway obstruction, neuromuscular related. 3. Multiple sclerosis with exacerbation. 4. Bulbar weakness, not otherwise specified, under investigation and evaluation. 5. Treat for Pseudomonas and Haemophilus influenzae pneumonia. 6. Less likely fluid overload. At this point, we will continue antibiotics. We will stop the vancomycin. Continue propofol and intermittent fentanyl for comfort. The patient at this time will remain with ventilator. ENT saw the patient and tentatively is planning for tracheostomy. I have discussed this with multiple family members and physician and was deemed in agreement so far. We will follow along closely. MD CLAUDIA Lay/SELENA /[id number]
--- NOTE | 2018-11-03 16:52 | Consultation ---
DATE OF CONSULTATION: 11/03/2018 Hospital Consultation HISTORY OF PRESENT ILLNESS: I was kindly asked to see this 58-year-old man for evaluation of tracheostomy tube placement. The patient has a history of multiple sclerosis, which has been relapsing and remitting for many years. After admission, he failed to respond to conservative measures and began having difficulty handling his own secretions. He became hypoxic and was intubated. Extubation was attempted and failed, necessitating re-intubation. PAST MEDICAL AND SURGICAL HISTORY: Reviewed in detail in the chart. PHYSICAL EXAMINATION: On examination, there is no abnormal neck anatomy noted. ASSESSMENT: 1. Respiratory failure secondary to multiple sclerosis. 2. Aspiration. 3. Dysphagia. PLAN: Tracheostomy. MD THUY Ortega/MODL /[id number]
--- NOTE | 2018-11-03 18:42 | Progress Note ---
DATE: 11/03/2018 Internal Medicine Progress Note SUBJECTIVE: The patient is still on the ventilator. OBJECTIVE: VITAL SIGNS: Blood pressure 143/78, temperature 98.3, heart rate 60 per minute, respiratory rate 18 per minute, oxygen saturation 99%. HEART: Showed regular rhythm. Normal S1, S2 sound. LUNGS: Clear bilaterally. ABDOMEN: Soft. LABORATORY DATA: BMP; sodium 145, potassium 3.6, chloride 109, CO2 28, BUN 25, creatinine 0.66, glucose 153. CBC; white blood cell count 9.68, hemoglobin 12.6, hematocrit 37.0, platelet count 259,000. PT 13.1, INR 0.94, PTT 30.0. AST 40, ALT 34, total bilirubin 0.9, alkaline phosphatase 46. IMPRESSION: 1. Acute respiratory failure secondary to combination of aspiration pneumonia and worsening multiple sclerosis. 2. Multiple sclerosis exacerbation. 3. Aspiration pneumonia. 4. Acute renal failure. 5. Dysphagia. PLAN OF TREATMENT: Continue albuterol and Atrovent q.4 hours. Continue ventilator support. Continue Zosyn q.8 hours. Potassium will be replaced. Continue propofol for sedation, Pepcid 20 mg twice a day, lorazepam 1 mg q.6 hours as needed, Lovenox 40 mg subcutaneously daily. Case has been discussed with the family at the bedside and nurse. Time spent 1 hour. MD ALICE Yin/SELENA /[id number]
[2018-11-04] VITALS (25 sets, daily range): BP systolic 93–128; BP diastolic 60–77
[2018-11-04] MEDS: PROPOFOL IV EMULSION 10MG/ML 100 ML IV SCH ×4 (02:16→22:12)
[2018-11-04] MEDS: ALBUTEROL/IPRATROPIUM 3 ML NEB NEB SCH ×6 (03:30→23:15)
[2018-11-04] MEDS: PIPERACILLIN/TAZO 4.5 GM 100 ML IV SCH ×3 (05:01→23:38)
[2018-11-04 05:43] LABS: ANION GAP 9.5 mmol/L (8-16); BLOOD UREA NITROGEN 19 mg/dL (7-26); BUN/CREATININE RATIO 30 (6-25); CALCIUM 8.2 mg/dL (8.4-10.2); CARBON DIOXIDE 28 mmol/L (22-29); CHLORIDE 106 mmol/L (98-107); CREATININE, SERUM 0.63 mg/dL (0.72-1.25); EST GLOMERULAR FILTRATION RATE > 60 ML/MIN (60-); GLUCOSE 103 mg/dL (74-118); POTASSIUM 3.5 mmol/L (3.5-5.1); SODIUM 140 mmol/L (136-145)
[2018-11-04] MEDS: FAMOTIDINE 20 MG/2 ML VIAL IV SCH ×2 (08:00→17:47)
--- NOTE | 2018-11-04 08:30 | NUR ---
ST NOTE: Pt remains intubated, pt will need swallow evaluation prior to PO intake.
[2018-11-04] MEDS ORDERED: FUROSEMIDE INJ 10 MG/ML 4 ML VIAL IV NR (09:00)
--- NOTE | 2018-11-04 09:09 | Diagnostic Imaging Report ---
Examination: Single AP view of the chest. COMPARISON: None. INDICATION: CHF DISCUSSION: Endotracheal tube is stable in position. Interval placement of an enteric tube, which terminates over the upper abdomen, off the current radiograph. Interval improvement in interstitial pulmonary opacities relative to 11/02/2018. Persistent patchy opacities in the lung bases, right greater than left, likely atelectasis. No acute osseous abnormality. Stable cardiomediastinal contour. IMPRESSION: Stable position of endotracheal tube. Interval placement of an enteric tube, tip not visualized as described above. Improved interstitial edema relative to 11/02/2018. Persistent bibasilar opacities, right greater than left, which may represent atelectasis, aspiration, or pneumonia in the appropriate clinical setting. Signed by: Dr. Thai Schreiber M.D. on 11/04/2018 9:06 AM
[2018-11-04] MEDS ORDERED: POTASSIUM CHLORIDE 20 MEQ TAB CR PO NR (09:30)
--- NOTE | 2018-11-04 09:31 | NUR ---
Consult called to Dr Milton.
[2018-11-04] MEDS ORDERED: POTASSIUM CHLORIDE 20MEQ/15ML UDC NG NR (10:00)
[2018-11-04 10:14] LABS: INR 1.04; PROTHROMBIN TIME 14.1 seconds (11.9-14.5)
[2018-11-04 10:30] LABS: PARTIAL THROMBOPLASTIN TIME 24.7 seconds (23.8-35.5)
--- NOTE | 2018-11-04 11:41 | Progress Note ---
DATE: 11/04/2018 Internal Medicine Progress Note SUBJECTIVE: The patient is still on the ventilator. He is going to go for tracheostomy tomorrow. OBJECTIVE: HEART: Showed regular rhythm. No murmur or added sound. LUNGS: Clear bilaterally. ABDOMEN: Soft. EXTREMITIES: Showed no evidence of cyanosis or trauma. VITAL SIGNS: Blood pressure 128/75, temperature 98.6, heart rate 64 per minute, respiratory rate 14 per minute, and oxygen saturation 100%. LABORATORY STUDIES: On the BMP; sodium 140, potassium 3.5, chloride 106, CO2 28, BUN 18, creatinine 0.83, and glucose 103. On CBC; white blood count 9.66, hemoglobin 12.6, hematocrit 37.0, and platelet count 269,000. PT 13.1, INR 0.94, and PTT 30.0. AST 48, ALT 34, total bilirubin 0.9, alkaline phosphatase 46. FINAL IMPRESSION: 1. Acute respiratory failure. 2. Aspiration pneumonia. 3. Multiple sclerosis exacerbation. 4. Dysphagia. PLAN OF TREATMENT: Continue ventilator support. He is going for tracheostomy. Continue albuterol and Atrovent q.4 hours, continue Zosyn q.8 hours, continue propofol for sedation, Zofran 4 mg IV q.4 hours as needed, fentanyl 50 mcg q.4 hours as needed, Lovenox 40 mg subcutaneously daily for DVT prophylaxis, Lasix 40 mg IV push one time due to CHF, Pepcid 20 mg twice a day, and lorazepam 1 mg q.6 hours as needed. The patient has some evidence of CHF. We are going to consult Dr. Milton for Cardiology. Echocardiogram has been done. Lasix 40 mg IV push x1 has been given. We are going to order BMP and magnesium level tomorrow. Case discussed with the family. Time spent 1 hour. MD ALICE Yin/SELENA /[id number]
--- NOTE | 2018-11-04 14:08 | NUR ---
Nutrition Intervention Note RD Recommendation(s) for Physician: TF recommendation: Vital HP at 10 ml/hr advance as tolerated to goal rate of 65 ml/hr (1560 kcal and 136 gram protein). Do not advance TF over 40 ml/hr until propofol weaned to 10ml/hr to prevent overfeeding on vent- TF at 40 ml/hr plus current propofol rate provides pt with- 1625 kcal, 83 grams protein) -IVF management and additional flushes per MD. -Propofol providing 665 lipid mariah per day currently, if propofol rate is increased, please consult RD. -Check daily labs, weight, and gastric tolerance. Plan of Care: RD following, monitoring for tolerance and adequacy. TF recs Nutrition reason for involvement: Follow up RD Assessment 11/04: Follow up: Discussed pt in rounds: pt remains mechanically ventilated, tube feeds are currently on hold, plan is for trach tmrw. Nurse reported they will probably not re-start TF until tmrw. Pt has an order for Jevity 1.2 at 20 ml/hr, provided recommendations above with new formula and goal rate. Pt is currently on 25.217 mls/hr of propofol ( 665 kcal), no pressor support as of now. If propofol rate is increased, recommended to re consult RD to calculate appropriate rate and keep pt at trickle feeds of 10-20 ml/hr or to not advance TF over 40ml/hr. Will continue to monitor to ensure pt is receiving appropriate nutrition via TF. 11/01- 58yo M, who was admitted for MS exacerbation. Currently intubated, sedated and ventilated. Pt was discussed during AM rounds. TF was held due to high residual noted. Unknown # mL for gastric residual. No pressor meds noted. Negative urine and blood culture. No pressure wound noted. Visited pt in the room. Propofol running at 27.7mL/hr (730kcal/day if running for 24hr). 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 Last meal intake was on 10/28. Pt attempted to lose weight for the last couple months. Speech following. Possible extubation in the AM. Will continue to monitor and follow. Principal Problems/Diagnoses: 1. Acute respiratory failure, intubated. 2. Gram-negative pneumonia, aspiration related. 3. Additional gram-positive cocci on sputum, pending. 4. Multiple sclerosis with exacerbation/flare. 5. Dysphagia, bulbar symptoms. PMH: Hyperlipidemia, relapsing-remitting multiple sclerosis, chronic neck and back pain from degenerative disk disease, benign prostatic hypertrophy. GI: Abdomen round, non-tender, soft, LBM 10/28 Skin: Intact Labs: 11/04: Creat .63, Ca 8.2, Mg 2.2 (11/01) K 3.1 L, Creatinine 0.65 L, Glucose 160 H Meds: abx, propofol, pepcid, fentanyl Ht: 68in Wt: 11/01: 205.25lb 11/04: 178 lbs BMI: 27.1 kg/m2 IBW: 154lb Malnutrition Evaluation (11/04/2018) The patient does not meet criteria for a specified degree of malnutrition at this time. Will re-evaluate at follow-up as appropriate. Nutrition Prescription (Diet Order): Jevity 1.2 @20mL/hr Estimated Nutritional Needs: Calories: 1540 1750kcal (22-25kcal/kg/d) Weight used: IBW Protein: 105 175g (1.5-2.5g/kg/d) Weight used: IBW Diet Adequacy: Not meeting calorie needs, Not meeting protein needs TF was held Diet Education Needs Assessment: Diet education indicated, but patient not appropriate for education at this time. Nutrition Care Level: mod Nutrition Diagnosis: Inadequate oral intake related to current medical status as evidenced by pt requiring EN as main source of nutrition. Goal: Patient will meet 75-100% of estimated needs by follow up Progress: not progressing Interventions: - Composition, Rate, Route, Recommended Modifications, Collaboration with other providers, prescription medication Monitoring/Evaluation: - Total energy intake, Total protein intake, Formula/Solution, Weight change, Labs, prescription medication Signed: Terri Diego RD, LD
--- NOTE | 2018-11-04 14:31 | Progress Note ---
DATE: 11/04/2018 Pulmonary Medicine Progress Note SUBJECTIVE: Mr. Sebastian was seen and examined at bedside. He continues to have ventilator support. He went on tube feeds up to 20 mL/hour yesterday. He was tolerating them. However, they were arbitrarily switched off with consideration that he may be able to go for early surgery. However, it looks like surgery will be tentatively for tomorrow. A 2.7 L in, 2.1 L out. Chest x-ray with continued bilateral infiltrates and mild increased vascular congestion pattern. REVIEW OF SYSTEMS: Cannot get as he is intubated. OBJECTIVE: VITAL SIGNS: Afebrile, vital signs noted per the chart and record. GENERAL: In no acute distress, alert and calm. HEENT: Normocephalic, atraumatic. NECK: Supple. Throat midline. LUNGS: Bilateral air entry, rare rhonchi. CARDIOVASCULAR: S1, S2. No murmurs, rubs, or gallops. ABDOMEN: Soft, nontender. EXTREMITIES: No clubbing. No cyanosis. There is no edema. INTEGUMENT: No rash. No purpura. LABS: A 3.5 potassium, 19 BUN, and 0.6 creatinine. A 10 white count, 37 hematocrit. IMPRESSION AND PLAN: 1. Acute respiratory failure, intubated. 2. Multiple bulbar palsy, acute onset. Upper airway obstruction secondary to baseline. 3. Multiple sclerosis with exacerbation. 4. Pneumonia, Pseudomonas, and Haemophilus. 5. Continue antibiotics for pneumonia. Keep him slightly on dry side. He was given an additional dose of Lasix today. Echo was ordered. Tracheostomy tentatively tomorrow about 12:30 p.m. The patient will continue current care in the ICU. After tracheostomy, he will need a lot of rehab. MD CLAUDIA Lay/SELENA /[id number]
--- NOTE | 2018-11-04 19:10 | NUR ---
Bedside report given to YULIANA Tapia.
[2018-11-05] VITALS (25 sets, daily range): BP systolic 101–146; BP diastolic 70–90
--- NOTE | 2018-11-05 01:24 | Consultation ---
DATE OF CONSULTATION: 11/04/2018 Cardiology Consultation REASON FOR CONSULTATION: Congestive heart failure. HISTORY OF PRESENT ILLNESS: This is a 58-year-old man, who is currently intubated due to acute respiratory failure and pneumonia. Most of the history is taken from the nursing at bedside. Evidently, the patient was found to have more congestion with pulmonary edema, was given Lasix, which prompted the suspicion of congestive heart failure. The patient's family states that he has been evaluated by a coordinator mining products in the past with normal results. He never followed back up for his stress test. REVIEW OF SYSTEMS: Unable to be obtained. PAST MEDICAL HISTORY: Pneumonia, multi-bulbar palsy, multiple sclerosis. PAST SURGICAL HISTORY: None recent. PAST FAMILY HISTORY: No premature coronary artery disease and cardiac . SOCIAL HISTORY: No illicit drug, alcohol, or tobacco use. ALLERGIES: NO KNOWN DRUG ALLERGIES. PHYSICAL EXAMINATION: VITAL SIGNS: Temperature is 98.2, heart rate 64, respirations are 14, blood pressure is 106/62, and oxygen saturation 100% on mechanical ventilation. GENERAL: Well appearing, no apparent distress. CARDIOVASCULAR: Regular rate and rhythm. No murmurs. LUNGS: Clear to auscultation on anterior examination, mild decreased breath sounds at bases. ABDOMEN: Soft, nontender, nondistended. EXTREMITIES: No edema. VASCULAR: A 2+ pulses. NEUROLOGIC: Unable to be obtained. MEDICATIONS: Reviewed. LABORATORY DATA: Reviewed. Creatinine 0.63. BNP is 114. Potassium 3.5. A 12-lead electrocardiogram showed normal sinus rhythm. Echocardiogram showed preserved left ventricular systolic function with an estimated ejection fraction of 60-65% with grade 1 diastolic dysfunction. IMPRESSION: 1. Pulmonary edema. 2. Pneumonia. 3. Acute respiratory failure. 4. Chronic diastolic heart failure. 5. Multiple bulbar palsy and multiple sclerosis. RECOMMENDATIONS: Echo showed preserved left ventricular systolic function. May consider continuing Lasix to keep the patient on net negative side. Continue infectious treatment per primary team. The patient is scheduled for a tracheostomy, may proceed from a cardiovascular standpoint. Jim Keita DO BM/MODL /[id number]
[2018-11-05] MEDS: PROPOFOL IV EMULSION 10MG/ML 100 ML IV SCH ×4 (02:50→21:33)
[2018-11-05] MEDS: ALBUTEROL/IPRATROPIUM 3 ML NEB NEB SCH ×6 (03:30→23:30)
[2018-11-05 05:30] LABS: ANION GAP 9.7 mmol/L (8-16); BLOOD UREA NITROGEN 19 mg/dL (7-26); BUN/CREATININE RATIO 29 (6-25); CALCIUM 8.6 mg/dL (8.4-10.2); CARBON DIOXIDE 29 mmol/L (22-29); CHLORIDE 102 mmol/L (98-107); CREATININE, SERUM 0.66 mg/dL (0.72-1.25); EST GLOMERULAR FILTRATION RATE > 60 ML/MIN (60-); GLUCOSE 102 mg/dL (74-118); POTASSIUM 3.7 mmol/L (3.5-5.1); SODIUM 137 mmol/L (136-145)
[2018-11-05] MEDS: PIPERACILLIN/TAZO 4.5 GM 100 ML IV SCH ×3 (06:06→21:33)
--- NOTE | 2018-11-05 07:03 | Diagnostic Imaging Report ---
Examination: Single AP view of the chest. COMPARISON: 11/04/2018 INDICATION: Intubated DISCUSSION: Lines/tubes: Endotracheal tube 2.5 cm above the yi. Enteric tube with distal tip not visualized. Lungs: Stable interstitial and alveolar opacities. Decreased lung volume. Pleura: No pleural effusion or pneumothorax. Heart and mediastinum: The heart and the mediastinum are unremarkable. Bones and soft tissues: No acute bony abnormalities. IMPRESSION: Decreased lung volume with stable interstitial and alveolar opacities. Signed by: Dr. Ector Churchill M.D. on 11/05/2018 7:00 AM
[2018-11-05] MEDS: FAMOTIDINE 20 MG/2 ML VIAL IV SCH ×2 (09:09→18:22)
--- NOTE | 2018-11-05 10:52 | NUR ---
ST NOTE: Pt remains intubated, pt will need swallow evaluation prior to PO intake.
--- NOTE | 2018-11-05 11:06 | Progress Note ---
DATE: 11/05/2018 Internal Medicine Progress Note SUBJECTIVE: The patient is going for tracheostomy today. He is still on the ventilator. OBJECTIVE: VITAL SIGNS: Blood pressure 110/76, temperature 98.4 degrees Fahrenheit, heart rate 71 per minute, respiratory rate 14 per minute, and oxygen saturation 100%. HEART: Showed regular rhythm. No murmur or added sound. LUNGS: Clear bilaterally. ABDOMEN: Soft. EXTREMITIES: No evidence of cyanosis, edema, or trauma. IMAGING: Chest x-ray showed bilateral opacities, unchanged from before. LABORATORY DATA: On BMP; sodium 137, potassium 3.7, chloride 102, CO2 29, BUN 19, creatinine 0.66, and glucose 102. On CBC; white blood cell 9.68, hemoglobin 12.6, hematocrit 30.0, and platelet count 269,000. PT 14.1, PTT 24.7, and INR 1.04. AST 48, ALT 34, total bilirubin 0.9, and alkaline phosphatase 46. FINAL IMPRESSION: 1. Acute respiratory failure secondary to aspiration pneumonia. 2. Aspiration pneumonia. 3. Multiple sclerosis exacerbation. 4. Acute congestive heart failure. 5. Hypokalemia, which is resolved. 6. Dysphagia. PLAN OF TREATMENT: He is going to go for tracheostomy today. Continue ventilator support. Continue Zosyn 3.375 g IV q.8 hours. Continue albuterol, Atrovent q.4 hours, propofol for sedation, Zofran 4 mg IV q.4 hours as needed, fentanyl citrate 50 mcg q.4 hours as needed, Lovenox 40 mg subcutaneously daily for DVT prophylaxis, Pepcid 20 mg twice a day, lorazepam 1 mg q.6 hours as needed. Case has been discussed with the family, nurse at the bedside. Labs have been reviewed. Chest x-ray has been reviewed. The patient is going for tracheostomy today. Time spent 55 minute. MD ALICE Yin/SELENA /[id number]
--- NOTE | 2018-11-05 12:23 | NUR ---
Dr Tate to bedside; patient family updated on current condition and plans. No questions or concerns at this time. Dr Walker to bedside; family states understanding and no questions. Patient preop checklist and 24 hour summary is ready.
[2018-11-05] MEDS ORDERED: LIDOCAINE 1% W/EPINEPHRINE 20 ML VIAL ONE (12:24)
[2018-11-05] MEDS ORDERED: SODIUM CHLORIDE 0.9% 1000ML 1,000 ML ONE (13:08)
--- NOTE | 2018-11-05 13:10 | NUR ---
Patient to OR via Dr Aaron guillermo and anesthesiologist to bedside.
--- NOTE | 2018-11-05 13:45 | NUR ---
Patient to Room 192, VSS, mechanically ventilated to trach, dressing intact with minimal dried sanguineous drainage.
[2018-11-05] MEDS ORDERED: FENTANYL CITRATE/PF 100MCG/2 ML INJ ONE (14:16)
--- NOTE | 2018-11-05 15:46 | Progress Note ---
DATE: 11/05/2018 Pulmonary Medicine Progress Note SUBJECTIVE: Mr. Sebastian was seen and examined at bedside. 1.3 L in, 4.6 L out. One bowel movement. The patient with ventilator infiltrates on chest x-ray. The patient remains with endotracheal tube in place and on ventilator. REVIEW OF SYSTEMS: Infiltrates at this time. Cannot get reliably as patient is on ventilator. OBJECTIVE: VITAL SIGNS: Afebrile, vital signs noted reviewed per the chart record. GENERAL: In no acute distress, alert and calm, well sedated. HEENT: Normocephalic, atraumatic. NECK: Supple. Throat midline. LUNGS: Bilateral air entry, rare rhonchi. CARDIOVASCULAR: S1, S2. No murmurs, rubs, or gallops. ABDOMINAL: Soft, nontender. EXTREMITIES: No clubbing. No cyanosis. There is no edema. INTEGUMENT: No rash. No purpura. LABORATORY DATA: 3.7 potassium, 0.7 creatinine. 10 white count, 37 hematocrit. IMPRESSION AND PLAN: 1. Acute respiratory failure, intubated. 2. Upper airway obstruction, neuromuscular failure. 3. Multiple sclerosis with exacerbation. 4. Pseudomonas/Haemophilus pneumonia. 5. Tentative tracheostomy today shortly. Continue ventilator. Resume tube feeds after tracheostomy and cautiously increase upwards as patient recently had increased residuals 2 to 3 days ago. Continue comfort medications. We will follow along closely. MD CLAUDIA Lay/MODL /[id number]
--- NOTE | 2018-11-05 17:16 | Progress Note ---
DATE: 11/05/2018 Cardiology Progress Note SUBJECTIVE: Mr. Sebastian underwent tracheostomy. His care was reviewed with his nurse. PHYSICAL EXAMINATION: VITAL SIGNS: Afebrile, heart rate 74, blood pressure 121/79. CARDIOVASCULAR: Regular rhythm. Systolic murmur. LUNGS: Fine crackles bilaterally. TELEMETRY: Shows sinus tachycardia. LABORATORY DATA: Labs from today, WBC count is pending. Creatinine is normal. BNP level is normal. ASSESSMENT: 1. Noncardiogenic pulmonary edema. 2. Acute respiratory failure due to pneumonia. 3. Chronic diastolic heart failure. RECOMMENDATIONS: Current cardiac medication reviewed and appropriate. No further cardiac workup at this point. Continue weaning. Consider long-term acute care. MD DELICIA Salazar/CHANDANAL /[id number]
--- NOTE | 2018-11-05 19:57 | Diagnostic Imaging Report ---
EXAM: ABDOMEN-1VIEW (KUB), DATE: 11/05/2018 8:00 PM INDICATION: N G-tube placement. COMPARISON: None FINDINGS: Limited exam with the right hemiabdomen a complete included. LINES/TUBES: None. BOWEL PATTERN: No evidence for obstruction. SOFT TISSUES: No abnormal calcifications. No mass effect. LUNG BASES: Not included BONES: No acute findings. Screws in the L5-S1 level. IMPRESSION: An NG tube is not identified. Recommend chest x-ray including the upper abdomen. Signed by: Dr. Neftali Galicia M.D. on 11/05/2018 7:53 PM
--- NOTE | 2018-11-05 21:08 | Operative Report ---
DATE OF PROCEDURE: 11/05/2018 SURGEON: Billy Walker MD PREOPERATIVE DIAGNOSIS: Respiratory failure. POSTOPERATIVE DIAGNOSIS: Respiratory failure. PROCEDURE: Tracheostomy with #8 Shiley WEED SCIENCE RESEARCH TECHNICIAN tracheostomy tube. ANESTHESIA: General. ESTIMATED BLOOD LOSS: Less than 10 mL. COMPLICATIONS: None. OPERATIVE FINDINGS: Normal neck anatomy. OPERATIVE INDICATIONS: This 58-year-old male with multiple sclerosis, suffered respiratory failure necessitating prolonged ventilator support. It is anticipated he will continue to need ventilator support and subsequent pulmonary toilet. The risks, benefits, alternatives to surgical intervention were discussed in detail with the patient's . He gave his informed consent to have this procedure performed. NARRATIVE OF REPORT: After first obtaining adequate general anesthesia through the previously placed endotracheal tube, the area of incision was infiltrated with 1% lidocaine with epinephrine 1:100,000, total of 8 mL was used. The patient was then prepped and draped in the usual fashion. A 3 cm incision was then made 2 cm above the sternal notch with a 15 blade and carried through the subcutaneous tissues with the Bovie surface logging systems logger. The strap muscles were then developed and divided in the midline and reflected laterally with a Gelpi retractor. The thyroid isthmus was then transected using the Bovie surface logging systems logger and the thyroid then incorporated the Gelpi retractor and reflected laterally. The cricoid hook was inserted. An incision was then made between the second and third tracheal ring and inferiorly-based trapezoidal flap then created. The endotracheal tube was then partially withdrawn and an #8 Shiley WEED SCIENCE RESEARCH TECHNICIAN tracheostomy tube then easily inserted through the tracheostomy site. CO2 was confirmed with exhaled gases and retractors were removed. The tracheostomy tube was sutured in place with 2-0 nylon sutures. The tracheostomy drain was applied and trach ties were applied and the patient was in satisfactory condition at the termination of the procedure. Billy Walker MD LRC/MODL /[id number]
[2018-11-05] MEDS: FENTANYL CITRATE/PF 100MCG/2 ML INJ IV PRN (21:33)
[2018-11-06] VITALS (36 sets, daily range): BP systolic 97–215; BP diastolic 64–115
[2018-11-06] MEDS: PROPOFOL IV EMULSION 10MG/ML 100 ML IV SCH (02:08)
[2018-11-06] MEDS: ALBUTEROL/IPRATROPIUM 3 ML NEB NEB SCH ×6 (03:30→22:40)
[2018-11-06] MEDS: FENTANYL CITRATE/PF 100MCG/2 ML INJ IV PRN ×2 (03:34→21:31)
[2018-11-06] MEDS: PIPERACILLIN/TAZO 4.5 GM 100 ML IV SCH ×3 (06:22→21:27)
--- NOTE | 2018-11-06 06:34 | Diagnostic Imaging Report ---
Examination: Single AP view of the chest. COMPARISON: 11/05/2018 INDICATION: Aspiration DISCUSSION: Lines/tubes: Tracheostomy. Enteric tube with the distal tip not visualized. Lungs: Improved aeration of the lung. No consolidation. Pleura: No pleural effusion or pneumothorax. Heart and mediastinum: The heart and the mediastinum are unremarkable. Bones and soft tissues: No acute bony abnormalities. IMPRESSION: 1. Improved aeration of the lungs. Signed by: Dr. Ector Churchill M.D. on 11/06/2018 6:31 AM
[2018-11-06] MEDS: FAMOTIDINE 20 MG/2 ML VIAL IV SCH ×2 (07:57→16:22)
--- NOTE | 2018-11-06 07:59 | Diagnostic Imaging Report ---
Exam: KUB -one view Clinical History: Verify nasogastric tube placement. Comparison: KUB 11/05/2018 at 1935. Findings: Exam is substantially limited by portable technique and motion. Enteric tube courses into the stomach, the tip likely terminates in the right upper quadrant likely in the proximal duodenum. No specific evidence of bowel obstruction. Screw overlies the L5-S1 level. Surgical clips project over the left hemisacrum. Impression: Limited examination demonstrating enteric tube coursing into the stomach, the tip likely terminates in the proximal duodenum. Signed by: Dr. Lupe Zhao MD on 11/06/2018 7:56 AM
--- NOTE | 2018-11-06 13:32 | NUR ---
LTAC EVAL 11/06 CHOICE LETTER SIGNED FOR [facility] MOT INITIATED AND PLACED ON CHART
--- NOTE | 2018-11-06 13:48 | NUR ---
WOUND CARE PUP SCREEN Narendra Score: 11 PUP: Strict LOS: 8 days Age: 58 Alternating Pressure Air Mattress to Current Weight HOB < 30 Degrees Heel Protectors in Place Patient Position: Left with Pillow Support Bilateral Wrist Restraints in use. Recent Tracheostomy with NGT and Tube Feeds. PATIENT VISIT / SKIN CHECK: No Pressure Ulcers Identified RECOMMENDATION: Continue Strict PUP
--- NOTE | 2018-11-06 15:37 | Progress Note ---
DATE: 11/06/2018 Pulmonary Medicine Progress Note SUBJECTIVE: Mr. Sebastian was seen and examined at bedside. He had tracheostomy done successfully yesterday. He is still not awoken after anesthesia as anesthesia was wearing off and he was given medicines for comfort. The patient is seen with daughter in the room. Daughter is ready to move him to outside facility for weaning. It was not easy to deal with secretions and his overall condition. REVIEW OF SYSTEMS: Cannot get as he is intubated. OBJECTIVE: VITAL SIGNS: Afebrile. Current vital signs noted and reviewed per the chart record. GENERAL: In no acute distress. Alert and calm. HEENT: Normocephalic, atraumatic. NECK: Supple. Throat midline. LUNGS: Bilateral air entry, few rhonchi. CARDIOVASCULAR: S1, S2. No murmurs, rubs, or gallops. ABDOMEN: Soft and nontender. EXTREMITIES: No clubbing, no cyanosis. There is no edema. INTEGUMENT: No rash. No purpura. IMPRESSION: 1. Acute respiratory failure, intubated. 2. Upper airways obstruction, neuromuscular dysfunction. 3. Chronic respiratory failure, status post tracheostomy. 4. Multiple sclerosis with exacerbation. 5. Pneumonia. PLAN: Continue antibiotics at this time. Continue treatment for gram-negative pneumonia per patient needs. Nursing to work with family regarding adjustment now that tracheostomy has been done. Weaning commenced. The patient is ready for long-term acute care facility and can have evaluation here if he needs a feeding tube. We will follow along closely. MD CLAUDIA Lay/SELENA /[id number]
--- NOTE | 2018-11-06 16:15 | NUR ---
INFORMED DR NEUMANN REGARDING PATIENTS ELEVATED BP 170'S/110, NEW ORDERS RECEIVED AND ENTERED
[2018-11-06] MEDS: HYDRALAZINE HCL 20 MG/ML VIAL IV PRN (16:30)
--- NOTE | 2018-11-06 17:05 | NUR ---
CALL PLACED TO DR NEUMANN REGARDING ELEVATED BP AND INCREASED HEART RATE, AWAITING RETURN CALL
[2018-11-06 17:23] LABS: BASOPHILS % 0.2 % (0.0-1.0); EOSINOPHILS # (AUTO) 0.1 (0.0-0.4); EOSINOPHILS % 0.7 % (0.0-6.0); HEMATOCRIT 48.4 % (38.2-49.6); HEMOGLOBIN 16.2 g/dL (14.0-18.0); LYMPHOCYTES # (AUTO) 1.2 (1.0-3.2); LYMPHOCYTES % 8.1 % (18.0-39.1); MEAN CORPUSCULAR HEMOGLOBIN 30.2 pg (28-32); MEAN CORPUSCULAR HGB CONC 33.5 g/dL (31-35); MEAN CORPUSCULAR VOLUME 90.1 fL (81-99); MONOCYTES # (AUTO) 0.8 (0.2-0.8); MONOCYTES % 5.5 % (4.4-11.3); NEUTROPHILS # (AUTO) 12.4 (2.1-6.9); NEUTROPHILS % 83.6 % (38.7-80.0); PLATELET COUNT 259 x10e3/uL (140-360); RED BLOOD COUNT 5.37 x10e6/uL (4.3-5.7); RED CELL DISTRIBUTION WIDTH 12.7 % (11.7-14.4)
[2018-11-06 17:46] LABS: ANION GAP 13.2 mmol/L (8-16); BLOOD UREA NITROGEN 20 mg/dL (7-26); BUN/CREATININE RATIO 31 (6-25); CALCIUM 9.7 mg/dL (8.4-10.2); CARBON DIOXIDE 25 mmol/L (22-29); CHLORIDE 102 mmol/L (98-107); CREATININE, SERUM 0.64 mg/dL (0.72-1.25); EST GLOMERULAR FILTRATION RATE > 60 ML/MIN (60-); GLUCOSE 177 mg/dL (74-118); POTASSIUM 4.2 mmol/L (3.5-5.1); SODIUM 136 mmol/L (136-145)
--- NOTE | 2018-11-06 18:45 | NUR ---
informed dr ch regarding episode of elevated BP and HR, informed that patient with increased work of breathing and that at this time patient placed back on cpap mode, after about 15 minutes improved bp and hr, will continue to monitor
--- NOTE | 2018-11-06 22:23 | Progress Note ---
DATE: 11/06/2018 Internal Medicine Progress Note SUBJECTIVE: The patient had a tracheostomy. He was on trach collar today, but he could not tolerate that, so he was placed back . OBJECTIVE: HEART: Showed regular rhythm. Normal S1, S2 sound. LUNGS: Clear bilaterally. ABDOMEN: Soft. EXTREMITIES: Show no evidence of cyanosis or hematoma. VITAL SIGNS: Blood pressure 99/75, temperature is 98.1, heart rate is 110 per minute, respiratory rate 21 per minute, and oxygen saturation 100%. LABORATORY STUDIES: On the blood work, we have BMP; sodium 136, potassium 4.2, chloride 102, CO2 of 25, BUN 20, creatinine 0.64, and glucose 177. On the CBC; white blood count is elevated at 14,700, hemoglobin 16.2, hematocrit 48.4, and platelet count 259,000. PT 14.1, INR 1.04, and PTT 24.7. AST 48, ALT 34, total bilirubin 0.9, and alkaline phosphatase 46. Chest x-ray showed clearing of the infiltrates and abdominal x-ray showed NG tube tip, partially in the duodenum. IMPRESSION: 1. Acute respiratory failure. 2. Aspiration pneumonia. 3. Dysphagia. 4. Multiple sclerosis exacerbation. 5. Leukocytosis. 6. Episode of hypertension, which is resolved. PLAN OF TREATMENT: Continue albuterol and Atrovent q.4 hours. Continue ventilator support. Continue Zosyn. Continue propofol for sedation, Zofran 4 mg IV q.4 hours as needed, Pepcid 20 mg twice a day for prophylaxis, hydralazine 10 mg q.2 hours IV as needed for hypertension. We are going to repeat a CBC tomorrow. Blood cultures negative. Urine culture negative. Continue current antibiotic therapy. The patient is going to be transferred to a long-term care hospital once okay with the consult. MD ALICE Yin/CHANDANAL /[id number]
[2018-11-07] VITALS (18 sets, daily range): BP systolic 108–180; BP diastolic 71–106
[2018-11-07] MEDS: ALBUTEROL/IPRATROPIUM 3 ML NEB NEB SCH ×4 (02:55→15:00)
[2018-11-07] MEDS: PIPERACILLIN/TAZO 4.5 GM 100 ML IV SCH ×2 (05:39→13:56)
[2018-11-07 05:49] LABS: BASOPHILS % 0.1 % (0.0-1.0); EOSINOPHILS # (AUTO) 0.1 (0.0-0.4); EOSINOPHILS % 0.4 % (0.0-6.0); HEMATOCRIT 47.9 % (38.2-49.6); HEMOGLOBIN 15.8 g/dL (14.0-18.0); LYMPHOCYTES % 6.6 % (18.0-39.1); MEAN CORPUSCULAR HEMOGLOBIN 29.8 pg (28-32); MEAN CORPUSCULAR VOLUME 90.4 fL (81-99); MONOCYTES # (AUTO) 0.9 (0.2-0.8); NEUTROPHILS # (AUTO) 13.2 (2.1-6.9); NEUTROPHILS % 86.4 % (38.7-80.0); PLATELET COUNT 270 x10e3/uL (140-360); RED CELL DISTRIBUTION WIDTH 12.8 % (11.7-14.4)
[2018-11-07] MEDS: FENTANYL CITRATE/PF 100MCG/2 ML INJ IV PRN (07:08)
[2018-11-07] MEDS: HYDRALAZINE HCL 20 MG/ML VIAL IV PRN (08:19)
--- NOTE | 2018-11-07 08:19 | NUR ---
hydralazine 10mg given for BP 175/94. patient placed on cpap now.
[2018-11-07] MEDS: FAMOTIDINE 20 MG/2 ML VIAL IV SCH (08:28)
[2018-11-07] MEDS ORDERED: METOPROLOL TARTRATE 25 MG TAB PO SCH (09:00)
[2018-11-07] MEDS ORDERED: METOPROLOL SUCCINATE 50 MG TAB XL PO SCH (09:00)
[2018-11-07] MEDS ORDERED: AMLODIPINE BESYLATE 5 MG TAB PO SCH (09:00)
[2018-11-07] MEDS: LABETALOL HCL 5 MG/ML 20ML VIAL IV PRN ×2 (09:01→12:05)
--- NOTE | 2018-11-07 10:52 | Progress Note ---
DATE: 11/07/2018 Internal Medicine Progress Note SUBJECTIVE: The patient is on the ventilator. We are trying to wean him off the vent. OBJECTIVE: HEART: Tachycardia. No murmur or added sound. LUNGS: Clear bilaterally. ABDOMEN: Soft. VITAL SIGNS: Blood pressure is 175/94, heart rate is 131 per minute, temperature 98.3, respiratory rate is 19 per minute, and oxygen saturation 100%. LABORATORY STUDIES: On the blood work, we have a CBC with white blood count 15,300, hemoglobin 15.8, hematocrit 47.9, and platelet count 270,000. On the BMP; sodium 136, potassium 4.2, chloride 102, CO2 25, BUN 20, creatinine 0.64, glucose 177, magnesium 2.2, and calcium 9.7. Toxicology negative. Chest x-ray done yesterday, which showed improved aeration of the lungs and then we have an abdominal x-ray, which showed limited examination demonstrating enteric tube coursing into the stoma, it likely terminates in a proximal duodenum. IMPRESSION: 1. Acute respiratory failure secondary to aspiration pneumonia. 2. Aspiration pneumonia. 3. Multiple sclerosis exacerbation. 4. Dysphagia. 5. Leukocytosis. 6. Hypertension. 7. Tachycardia. PLAN OF TREATMENT: We are going to continue ventilator support, wean as tolerated at sometime on SIMV. He gets very tachycardic and hypertensive. Labetalol is going to be given at 20 mg IV q.3 hours as needed for hypertension, Zosyn 4.5 g IV q.8 hours. He is on propofol drip, albuterol and Atrovent q.4 hours. Continue Pepcid 20 mg IV twice a day. Continue fentanyl 20 mcg IV q.4 hours as needed, hydralazine 10 mg IV q.12 hours as needed for hypertension. I am going to also start him on Norvasc 5 mg through the NG tube daily. We are going to start metoprolol, we are going to start him on 50 mg daily for blood pressure control. The patient is going to be transferred to [facility] once accepted. Weaning process will continue. MD ALICE Yin/SELENA /[id number]
[2018-11-07] MEDS: PROPOFOL IV EMULSION 10MG/ML 100 ML IV SCH (11:35)
--- NOTE | 2018-11-07 13:35 | NUR ---
CM CALLED BY SILAS COLON AT [facility] STATING WHEN THEY CHECKED INSURANCE BENEFITS THEY SHOWED THAT PT HAS MCR A PRIMARY CM CALLED [phone] TO HAVE THEM CHECK ALSO EMAIL TO [facility] AWAIT ANSWER YESTERDAY PT WAS ON CPAP APPROX 10 HRS TODAY ONLY 10-15 MIN HAVING DIARRHEA WITH JEVITY FEEDS DIETARY CHANGING FORMULA
--- NOTE | 2018-11-07 14:01 | NUR ---
Nutrition Intervention Note RD Recommendation(s) for Physician: TF recommendation: Start Vital AF 1.2 at 20 ml/hr, advance as tolerated, to goal rate of 55 ml/hr (1584 kcal, 99gram protein, 1071ml water) -Water flushes of 75mL q 4hr; additional flushes per MD. -Check daily labs, weight, and gastric tolerance. Plan of Care: RD following, monitoring for tolerance and adequacy, TF recs Nutrition reason for involvement: Follow up RD Assessment 11/07: Follow up. Discussed pt during AM rounds. Pt was extubated with trach collar on vent. Labetalol started for high BP. No pressor meds noted. Pt was off sedation as of this AM. Per RN Ben, pt had 5 loose stools this AM. Jevity was running at 20mL/hr without gastric residual. CT abd/pel was unremarkable. Spoke with Dr. Moeller on the phone regarding TF rec. Elemental formula is more appropriate for ventilated pt. He was agreeable with plan. Telephone order was placed. Communicated TF rec with RN. Will continue to monitor and follow. Please consult as needed. 11/04: Follow up: Discussed pt in rounds: pt remains mechanically ventilated, tube feeds are currently on hold, plan is for trach tmrw. Nurse reported they will probably not re-start TF until tmrw. Pt has an order for Jevity 1.2 at 20 ml/hr, provided recommendations above with new formula and goal rate. Pt is currently on 25.217 mls/hr of propofol ( 665 kcal), no pressor support as of now. If propofol rate is increased, recommended to re consult RD to calculate appropriate rate and keep pt at trickle feeds of 10-20 ml/hr or to not advance TF over 40ml/hr. Will continue to monitor to ensure pt is receiving appropriate nutrition via TF. 5- 58yo M, who was admitted for MS exacerbation. Currently intubated, sedated and ventilated. Pt was discussed during AM rounds. TF was held due to high residual noted. Unknown # mL for gastric residual. No pressor meds noted. Negative urine and blood culture. No pressure wound noted. Visited pt in the room. Propofol running at 27.7mL/hr (730kcal/day if running for 24hr). Per family, pt was eating like normal AUTO SERVICER. No issue with chewing or swallowing AUTO SERVICER. Last meal intake was on 10/28. Pt attempted to lose weight for the last couple months. Speech following. Possible extubation in the AM. Will continue to monitor and follow. Principal Problems/Diagnoses: 1. Acute respiratory failure secondary to aspiration pneumonia. 2. Aspiration pneumonia. 3. Multiple sclerosis exacerbation. 4. Dysphagia. 5. Leukocytosis. 6. Hypertension. 7. Tachycardia. PMH: Hyperlipidemia, relapsing-remitting multiple sclerosis, chronic neck and back pain from degenerative disk disease, benign prostatic hypertrophy. GI: Abdomen round, non-tender, soft, BS active, liquid brown stool 11/07 Skin: Intact Labs: 11/07: Creatinine 0.64 L, Glucose 177 H 11/04: Creat .63, Ca 8.2, Mg 2.2 (11/01) K 3.1 L, Creatinine 0.65 L, Glucose 160 H Meds: labetalol, lopressor, pepcid Ht: 68in Wt: 11/01: 205.25lb 11/04: 178 lbs (Weight changes noted. Pt appeared to be ~180-190lbs. Verified with family) BMI: 27.1 kg/m2 IBW: 154lb Malnutrition Evaluation (11/04/2018) The patient does not meet criteria for a specified degree of malnutrition at this time. Will re-evaluate at follow-up as appropriate. Nutrition Prescription (Diet Order): Jevity 1.2 @20mL/hr Estimated Nutritional Needs: Calories: 1540 1750kcal (22-25kcal/kg/d) Weight used: IBW Protein: 105 175g (1.5-2.5g/kg/d) Weight used: IBW Diet Adequacy: Not meeting calorie needs, Not meeting protein needs Diet Education Needs Assessment: Diet education indicated, but patient not appropriate for education at this time. Nutrition Care Level: mod Nutrition Diagnosis: Inadequate oral intake related to current medical status as evidenced by pt requiring EN as main source of nutrition. Goal: Patient will meet 75-100% of estimated needs by follow up Progress: progressing Interventions: - Composition, Rate, Route, Recommended Modifications, Collaboration with other providers, prescription medication Monitoring/Evaluation: - Total energy intake, Total protein intake, Formula/Solution, Weight change, Labs, prescription medication Signed: Donna Soares MS, RD, LD
--- NOTE | 2018-11-07 14:17 | NUR ---
[facility] AREA SURE THAT THIS PT HAS MCR PART A PRIMARY AND HAVE ACCEPTED PT PT'S DAUGHTER AND NOTIFIED THEY ARE NOT SURE WHAT HIS PRIMARY INSURANCE IS; THEY BELIEVE THAT IT IS [employer] ALL OF HIS OP DOCTORS APPTS ARE PAID AND FILED WITH [employer] CM DIRECTOR AWARE OF SITUATION; WILL PROCEED WITH TRANSFER MOT COMPLETED AND GIVEN TO NURSE BARNEY DISCHARGE/TRANSFER ORDERS REC'D
--- NOTE | 2018-11-07 16:29 | Progress Note ---
DATE: 11/07/2018 Internal Medicine Progress Note SUBJECTIVE: Mr. Sebastian was seen and examined at bedside. He continues to have steady progress. The patient remains on ventilator. He did 10 hours on tracheostomy collar yesterday. The patient, however, with tachypnea and very high heart rate, therefore, he rested back again back on ventilator. Sedation was restarted also for comfort. No mark critical changes over the last day. REVIEW OF SYSTEMS: No headaches, no bleeding. OBJECTIVE: VITAL SIGNS: Afebrile, vital signs noted per the chart record. GENERAL: No acute distress, he can follow commands, although he had poor eye opening. HEENT: Normocephalic, atraumatic. NECK: Supple. Tracheostomy in place. LUNGS: Bilateral air entry, rare rhonchi. CARDIOVASCULAR: S1, S2. No murmurs, rubs, or gallops. ABDOMEN: Soft, nontender. EXTREMITIES: No clubbing, no cyanosis. There is no significant edema. INTEGUMENT: No rash. No purpura. LABORATORY DATA: 20 BUN, 0.6 creatinine. 15 white count, 220 platelets. IMPRESSION AND PLAN: 1. Acute respiratory failure, on ventilator. 2. Chronic respiratory failure, status post tracheostomy. 3. Pneumonia. 4. Possible fluid overload. 5. Multiple sclerosis with exacerbation. Continue current care at this time. The patient remained on ventilator weaning as much as possible. Continue tube feeds for now. No oral challenges for eating right now, he still needs lot more time. The patient will continue antibiotics. He got some initial diuretic, which we can give if needed, but for now diuretics have been placed on hold. MD CLAUDIA Lay/MODL /[id number]
--- NOTE | 2018-11-08 18:29 | Discharge Summary ---
HOSPITAL COURSE: A 58-year-old male who has a past medical history positive for multiple sclerosis, came to the hospital because of multiple sclerosis exacerbation with dysphagia. The patient had to be intubated, transferred to the ICU, diagnosed with aspiration pneumonia. A tracheostomy has been placed. Antihypertensive regimen has been started. The patient was seen by Dr. Rincon, neurologist, who gave the patient a few days of Solu-Medrol. The patient is on IV antibiotic and connected to the ventilator. He is transferred to [facility] for weaning from the ventilator machine. OBJECTIVE: HEART: Showed regular rhythm. No murmur or added sound. LUNGS: Clear bilaterally. ABDOMEN: Soft. EXTREMITIES: Showed no evidence of cyanosis, edema, or trauma. FINAL IMPRESSION: 1. Acute respiratory failure secondary to aspiration pneumonia. 2. Aspiration pneumonia. 3. Multiple sclerosis exacerbation. 4. Hypertension. 5. Tachycardia. PLAN OF TREATMENT: Continue IV antibiotic therapy. Continue ventilator support. He is on IV Zosyn. The patient will continue ventilator support and try to wean him off at [facility]. MD ALICE Yin/SELENA /[id number]
== END 2018-11-07 17:31 | DRG 4 ==
LOC: ER 12:38 → ERHOLD 15:16 → MED/SURG 18:35 → ICU 10-30 11:33
PROVIDERS: ADMIT Internal Medicine; ATTEND Internal Medicine
PROC: 0BH17EZ Insertion of Endotracheal Airway into Trachea, Via Natural or Artificial Opening (ICD-10-PCS; principal; 2018-11-02)
PROC: 5A1955Z Respiratory Ventilation, Greater than 96 Consecutive Hours (ICD-10-PCS; 2018-11-02)
PROC: 0B110F4 Bypass Trachea to Cutaneous with Tracheostomy Device, Open Approach (ICD-10-PCS; 2018-11-05)
DX: A41.9 Sepsis, unspecified organism (principal); J69.0 Pneumonitis due to inhalation of food and vomit; J96.00 Acute respiratory failure, unspecified whether with hypoxia or hypercapnia; I50.32 Chronic diastolic (congestive) heart failure; G81.94 Hemiplegia, unspecified affecting left nondominant side; G35 Multiple sclerosis; I11.0 Hypertensive heart disease with heart failure; G89.29 Other chronic pain; M19.90 Unspecified osteoarthritis, unspecified site; N40.0 Benign prostatic hyperplasia without lower urinary tract symptoms; F17.220 Nicotine dependence, chewing tobacco, uncomplicated
CPT/HCPCS: 31500; 36415; 36600; 70450; 70553; 71045; 71046; 72156; 74018; 80048; 80053; 80061; 80202; 80307; 81001; 82550; 82553; 82805; 83605; 83615; 83735; 83880; 84100; 84443; 84484; 85025; 85610; 85730; 87040; 87070; 87086; 87186; 87205; 92522; 93005; 93306; 93970; 94002; 94003; 94640; 99284; J0295; J0330; J0360; J1650; J1940; J2060; J2250; J2405; J2543; J2930; J3370; J3480; J7030; J7050; J7070